=== PATIENT | male | born 1980 | race Caucasian/White ===

== ENCOUNTER 2019-03-02 05:12 | Emergency (ER) | payer BC, SELFPAY ==
[2019-03-02 05:16] VITALS: BP 176/114; PULSE 111; RESP 18; TEMP 37.2; O2SAT 96
--- NOTE | 2019-03-02 05:33 | W.ED.GENAD ---
Discharge Plan Disposition Patient Disposition: HOME Condition: Good Discharge Details Chief Complaint: Nausea/Vomit/Diar Clinical Impression: Nausea, vomiting and diarrhea, Generalized abdominal pain, Elevated lipase Primary Care Provider: Juli Sethi ED Provider: Ellis Chavez Meds and New Rx's Prescriptions: New promethazine 25 mg tablet 25 mg PO Q6H PRN (Reason: nausea and vomiting) Qty: 10 RF: 0 Continued ibuprofen 600 MG tablet 600 mg PO Q6H PRN (Reason: Pain) Qty: 20 RF: 0 Discharge Instructions Instructions: Acute Nausea and Vomiting (ED), Abdominal Pain (ED) Additional Instructions: Laboratory studies are unremarkable other than slight elevated lipase. CT scan shows the pancreas to be normal. Tip of the appendix a little swollen but otherwise no evidence of appendicitis. Should return to ED for fever, persistent vomiting, localizing right lower quadrant pain. Otherwise, rest and fluids today. [place] diet if tolerated. Follow-up with primary care in the next 1 to 2 days if not doing better. Stand Alone Forms: Work Release Referrals: Juli Sethi [Primary Care Provider] - Medical Decision Making Patient presenting with chief complaint of vomiting and diarrhea. Some nasal congestion and cough but that started after been vomiting all morning and may be related more to that than true respiratory illness. Suspect this is all GI illness. Abdomen is benign. Will place IV and give fluids, Zofran, Toradol. Basic labs sent. Will reevaluate. 06:45 -labs are unremarkable other than an elevated lipase to 477. Patient has decreased pain but still has significant nausea despite Zofran. Will dose with Phenergan and obtain CT of the abdomen/pelvis. 07:45 -CT scan shows fatty liver but normal pancreas. Tip of the appendix a little on the borderline size. However, patient does not have localizing right lower quadrant pain or fever or white count. He is feeling better after the Phenergan and tolerating spenser wendi and crackers. Will attempt discharge home with prescription for Phenergan. [place] diet and fluids only today. Return to ED for localizing right lower quadrant pain, fever, persistent vomiting. Follow-up with primary care in the next couple of days if not feeling better. Lab Data Lab results reviewed: Yes I reviewed the patient's lab results. HPI General Mode of arrival: ambulatory. Date/Time Provider Initiated Documentation: 03/02/19 05:22. Limitations to Documentation: no limitations. Information obtained by: patient and RN notes reviewed. HPI Narrative: Patient presents to ED with nausea, vomiting and abdominal cramps with associated diarrhea. Patient reports waking up two days ago and being ill with same complaints all day. Yesterday he was feeling better and was actually tolerating fluids and rice. Went to bed feeling okay but woke up again this morning with recurrent nausea/vomiting/diarrhea. He has had hot flashes and chills but no documented fever. Abdominal pain is not localizing and seems diffuse and he thinks related to vomiting. He is developed a little bit of congestion and slight cough this morning. He has no chest pain or shortness of breath. There is been no recent travel outside of [place], use of antibiotics, sick contacts. Related Data Home Medications Medication Instructions Recorded Confirmed ibuprofen 600 mg PO Q6H PRN #20 tablet 10/15/16 03/02/19 promethazine 25 mg PO Q6H PRN #10 tab 03/02/19 Previous Rx's Medication Instructions Recorded ibuprofen 600 mg PO Q6H PRN #20 tablet 10/15/16 promethazine 25 mg PO Q6H PRN #10 tab 03/02/19 Allergies Allergy/AdvReac Type Severity Reaction Status Date / Time No Known Allergies Allergy Unverified 03/02/19 05:20 General Stated Complaint: Nausea/Vomit/Diar THALIA: 3 Review of Systems Narrative: As documented in HPI otherwise negative as below. Const: no fever, weakness Resp: no cough, SOB, pleuritic pain CV: no CP, diaphoresis, edema, syncope GI: abdominal pain, nausea, vomiting, diarrhea Neuro: mild headache; no numbness, focal weakness, confusion [facility] Medical History No active medical problems (Acute) Surgical History No significant past surgical history (Acute) Social History Smoking/Tobacco Use Status: Never Alcohol Intake: current Alcohol Intake frequency: a few times a month Drug use: Never Do you feel safe at home: Yes Do you feel safe in your relationship?: Yes Exam Narrative Exam Narrative: Vitals: Afebrile. Elevated heart rate and blood pressure. Normal room air pulse oximetry. Const: WDWN male in NAD. HEENT: NC/AT. Normal facial exam. Eyes: Normal conjunctiva and sclera. Neck: Supple. Trachea midline. Lungs: Normal respiratory effort. Lungs are clear. Cor: RRR without murmur/gallop. Good radial pulses. GI: Soft. NT/ND. No guarding or rebound. Neuro: A+O x 3. CN grossly in tact. Good strength and no focal deficit. Ext: No C/C/E. Skin: Warm and dry without rash. Course Vital Signs Vital signs: Vital Signs Temperature 99.0 F 03/02/19 05:16 Pulse 111 H 03/02/19 05:16 Respiratory Rate 18 03/02/19 05:16 Blood Pressure 176/114 H 03/02/19 05:16 Pulse Oximetry 96 03/02/19 05:16 Temperature 99.0 F 03/02/19 05:16 Temperature Source Skin 03/02/19 05:16 Pulse 111 H 03/02/19 05:16 Respiratory Rate 18 03/02/19 05:16 Respiratory Effort Non-Labored 03/02/19 05:18 Blood Pressure 176/114 H 03/02/19 05:16 Blood Pressure Position Sitting 03/02/19 05:16 Pulse Oximetry 96 03/02/19 05:16 Oxygen Delivery Method Room Air 03/02/19 05:16 Oxygen Flow Rate 0 03/02/19 05:16 Comment 03/02/19 05:16 Lab/Test Results Lab/Test Results: 03/02/19 05:26 Nasopharynx Influenza Types A,B Antigen - Pending
[2019-03-02] MEDS: Ondansetron 4 MG/2 ML VIAL IVP (05:37)
[2019-03-02] MEDS: Ketorolac 15 MG/ML VIAL IVP (05:37)
[2019-03-02] MEDS: Lactated Ringers 1,000 ML 1000 ML IV (05:38)
[2019-03-02] MEDS: Normal Saline Flush 10 ML SYR IVP (05:38)
[2019-03-02 05:48] LABS: Abs Immature Grans 0.01 k/cumm (0.0-0.09); Absolute Eosinophil Count 0.02 k/cumm (0.0-0.7); Absolute Lymphocyte Count 0.45 k/cumm (1.2-3.4); Absolute Monocyte Count 0.54 k/cumm (0.11-0.7); Absolute Neutrophil Count 3.91 k/cumm (1.2-6.7); Eosinophils % 0.4; HCT 45.7 % (40.0-50.0); HGB 15.6 g/dL (13.5-17.5); Immature Grans % 0.2 %; Lymphocytes % 9.1; Mean Corp. HGB Concentration 34.1 g/dL (32.0-36.0); Mean Corpuscular Hemoglobin 30.2 pg (27.0-33.0); Mean Corpuscular Volume 88.4 fL (80-95); Mean Platelet Volume 9.6 fL (8.0-11.0); Neutrophils % 79.3; Platelet Count 158 x1000/uL (130-400); RBC 5.17 m/cumm (4.50-6.00); RBC Distribution Width 13.3 % (11.8-14.1); White Blood Cell Count 4.93 k/cumm (4.4-10.8)
[2019-03-02 06:04] LABS: ALT 27 U/L (16-63); AST 21 U/L (15-37); Albumin 3.7 g/dL (3.4-5.0); Alkaline Phosphatase 86 U/L (46-116); Anion Gap 13.4 mmol/L (3-11); BUN 15 mg/dL (7-18); Bilirubin, Total 0.6 mg/dL (0.2-1.0); CO2 24.6 mmol/L (21.0-32.0); CREATININE 1.17 mg/dL (0.70-1.30); Calcium 8.6 mg/dL (8.5-10.1); Chloride 101 mmol/L (98-107); Glucose 162 mg/dL (74-106); Lipase 477 U/L (73-393); Potassium 3.5 mmol/L (3.5-5.1); Sodium 139 mmol/L (136-145); Total Protein 7.6 g/dL (6.4-8.2)
[2019-03-02 06:30] VITALS: BP 136/79; PULSE 92; TEMP 36.9; O2SAT 97
[2019-03-02] MEDS: Omnipaque 350 MG/ML 100 ML BTL IJ (06:44)
--- NOTE | 2019-03-02 06:47 | DI.CT_ITS ---
EXAM: CT ABDOMEN PELVIS W CLINICAL HISTORY: vomiting/abd. pain/elevated lipase, NAUSEA,DIARRHEA TECHNIQUE: Imaging Protocol: Axial computed tomography images with coronal and sagittal reformatted images were created and reviewed CONTRAST MATERIAL: Intravenous: Omnipaque 350 Contrast volume:100 mL Oral: No COMPARISON: No exams were available for comparison FINDINGS: ABDOMEN: Lung Bases: Normal where visualized. Liver: Normal density. No measurable mass. Gallbladder and biliary tract: No radiodense calculus or dilation. Pancreas: Normal density, no abnormal calcifications or inflammatory process. Spleen: Normal. Kidneys: Normal size, contour and axis. No radiodense stones or obstructive uropathy. No masses seen. Adrenal glands: No masses seen. Abdominal Aorta: Abdominal portion non-dilated. Incidental note is made of a retroaortic left renal v ein. This is a normal variant. PELVIS: Bladder: Bladder is incompletely distended. Thickening of the bladder wall may be due to this incomp lete distension. No inflammatory changes are seen in the surrounding soft tissues. Bowel: No obstruction or bowel wall thickening. The tip of the appendix measures 8 millimeters in phil meter. The remainder of the appendix is of normal caliber. No periappendiceal inflammatory changes are seen. Peritoneal cavity: No ascites, collection or mesenteric inflammatory response. There is a small fat c ontaining umbilical hernia. Bones: Within normal limits. Reproductive organs: Within normal limits. Lymph nodes: Mildly enlarged lymph nodes are seen in the mesentery. Impression: 1. Mild prominence of the tip of the appendix measuring up to 8 millimeters. This may represent base line slightly prominent appendix in this patient. An early tip appendicitis cannot be excluded. Ple ase correlate clinically. 2. Mildly enlarged lymph nodes in the mesentery. Mesenteric adenitis cannot be excluded. 3. Equivocal urinary bladder wall thickening. This may be due to underdistention. Cystitis should b e considered. DATA REPOSITORY: All CT scans at this facility are submitted to the National Radiology Data Registry (NRDR) Dose Index Registry (DIR) with the [employer] (ACR). RADIATION OPTIMIZATION: All CT scans at this facility use at least one of these dose optimization te chniques: automated exposure control; mA and/or kV adjustment per patient size (includes targeted exa ms where dose is matched to clinical indication); or iterative reconstruction.
[2019-03-02] MEDS: Lactated Ringers 1,000 ML 125 ML IV (06:55)
[2019-03-02 06:56] VITALS: BP 131/87; PULSE 91; RESP 15; TEMP 36.6; O2SAT 98
--- NOTE | 2019-03-02 07:17 | DI.VRAD_ITS ---
Addendum created by Chris Sue MD on 03/02/2019 7:20:36 AM EST THIS REPORT CONTAINS FINDINGS THAT MAY BE CRITICAL TO PATIENT CARE. The findings were verbally communicated via telephone conference with JOHN SANTOYO at 7:20 AM EST on 03/02/2019. The findings were acknowledged and understood. Initial report created on 03/02/2019 7:16:48 AM EST PROCEDURE INFORMATION: Exam: CT Abdomen And Pelvis With Contrast Exam date and time: 03/02/2019 6:44 AM Age: 38 years old Clinical indication: Abdominal pain; Generalized; Patient HX: Nausea, vomiting, diarrhea for 3 days with abdomen TECHNIQUE: Imaging protocol: Computed tomography of the abdomen and pelvis with intravenous contrast. Radiation optimization: All CT scans at this facility use at least one of these dose optimization techniques: automated exposure control; mA and/or kV adjustment per patient size (includes targeted exams where dose is matched to clinical indication); or iterative reconstruction. Contrast material: OMNIPAQUE 350; Contrast volume: 100 ml; Contrast route: IV RAC; COMPARISON: No relevant prior studies available. FINDINGS: Liver: Hepatic steatosis is present. Gallbladder and bile ducts: Normal. No calcified stones. No ductal dilation. Pancreas: Normal. No ductal dilation. Spleen: Normal. No splenomegaly. Adrenals: Normal. No mass. Kidneys and ureters: Normal. No hydronephrosis. Stomach and bowel: Unremarkable. No obstruction. No mucosal thickening. Appendix: The base of the appendix is normal in caliber. The tip of the appendix is dilated to 7-8 mm. Findings may reflect baseline slightly prominent appendix. An early tip appendicitis is not excluded in the correct clinical setting. Intraperitoneal space: Unremarkable. No free air. No significant fluid collection. Vasculature: Unremarkable. No abdominal aortic aneurysm. Lymph nodes: Nonspecific small mesenteric lymph nodes are noted. Bladder: The urinary bladder is questionably thickwalled. This may reflect incomplete distention. However correlation with UA is recommended to exclude cystitis. Reproductive: Unremarkable as visualized. Bones/joints: Unremarkable. No acute fracture. Soft tissues: Fat containing umbilical hernia is noted. IMPRESSION: 1. The base of the appendix is normal in caliber. The tip of the appendix is dilated to 7-8 mm. Findings may reflect baseline slightly prominent appendix. An early tip appendicitis is not excluded in the correct clinical setting. 2. Equivocal cystitis. Dictated and Authenticated by: Chris Sue MD. Ordering:AUDIE Corral MD
[2019-03-02 08:00] VITALS: BP 126/72; PULSE 85; RESP 15; TEMP 36.5; O2SAT 98
[2019-03-02 08:05] VITALS: BP 126/72; PULSE 85; RESP 15; TEMP 36.5; O2SAT 98
== END 2019-03-02 08:07 | disposition home or self-care (01) ==
PROVIDERS: Emergency Provider Emergency Medicine; PCP Nurse Practitioner
DX: R11.2 Nausea with vomiting, unspecified (principal); R19.7 Diarrhea, unspecified; R05 Cough; R10.84 Generalized abdominal pain; R74.8 Abnormal levels of other serum enzymes
CPT/HCPCS: 36415; 80053; 83690; 87449; 96361; 96374; 96375; 99285; 74177; 85025; 99284; J1885; J2405; J3490

== ENCOUNTER 2019-12-02 09:59 | Outpatient (CLI) | payer BC, SELFPAY ==
--- NOTE | 2019-12-02 14:48 | DI.RAD_ITS ---
EXAM: XR HAND RT COMPLETE CLINICAL HISTORY: RT HAND PAIN, M79.641,PAIN OVER RT2ND MP JOINT. TECHNIQUE: 2D digital imaging was performed. COMPARISON: No exams were available for comparison FINDINGS: BONES: No acute fracture is present. No bony destructive lesion is seen. JOINTS: No dislocation present. Joint spaces are well maintained. SOFT TISSUE: Soft tissue swelling of the right index finger. IMPRESSION: Soft tissue swelling of the right index finger. DATA REPOSITORY: RADIATION DOSE DELIVERED:
== END 2019-12-02 10:19 ==
PROVIDERS: PCP Nurse Practitioner; Visit Provider Nurse Practitioner Family
DX: M79.641 Pain in right hand (principal); M79.89 Other specified soft tissue disorders
CPT/HCPCS: 73130

== ENCOUNTER 2019-12-02 13:50 | Outpatient (REF) | payer BC, SELFPAY ==
[2019-12-02 21:48] LABS: Uric Acid 8.8 mg/dL (3.5-7.2)
== END 2019-12-02 14:10 ==
LOC: NCHCN 13:50
PROVIDERS: PCP Nurse Practitioner; Visit Provider Nurse Practitioner Family
DX: M79.641 Pain in right hand (principal)
CPT/HCPCS: 84550

== ENCOUNTER 2020-01-10 09:13 | Outpatient (REF) | payer BC, SELFPAY ==
[2020-01-10 22:47] LABS: Anion Gap 7.1 mmol/L (3-11); BUN 14 mg/dL (7-18); CO2 26.9 mmol/L (21.0-32.0); CREATININE 1.24 mg/dL (0.70-1.30); Chloride 104 mmol/L (98-107); Glucose 124 mg/dL (74-106); Potassium 3.7 mmol/L (3.5-5.1); Sodium 138 mmol/L (136-145); Uric Acid 5.8 mg/dL (3.5-7.2)
== END 2020-01-10 09:33 ==
LOC: NCHCN 09:13
PROVIDERS: PCP Nurse Practitioner; Visit Provider Internal Medicine
DX: I10 Essential (primary) hypertension (principal); M10.9 Gout, unspecified; G47.9 Sleep disorder, unspecified
CPT/HCPCS: 80048; 84550

== ENCOUNTER 2020-07-09 05:25 | Emergency (ER) | payer BC, SELFPAY ==
[2020-07-09] VITALS (10 sets, daily range): BP systolic 133–154; BP diastolic 88–101; PULSE 80–90; RESP 14–18; TEMP 36.3; O2SAT 97–99
--- NOTE | 2020-07-09 05:15 | RT.EKG_ITS ---
APPROVED REPORT Exam: Resting ECG Reason for Exam: chest pain Patient Location: E HR:86 bpm ECG Measurements Heart Rate 86 AXIS WA 172 P 42 QRSd 96 QRS 53 QT 354 T 2 QTc 423 Conclusion Sinus rhythm...normal P axis, V-rate 60- 99
--- NOTE | 2020-07-09 05:30 | DI.RAD_ITS ---
Exam(s) XR CHEST 2V PA LATERAL EXAM: XR CHEST 2V PA LATERAL CLINICAL HISTORY: left upper chest pain. TECHNIQUE: 2D digital imaging was performed. COMPARISON: No exams were available for comparison FINDINGS: Heart size is normal. The mediastinum is not widened. Lungs are clear. No infiltrates nor pleural effusions. Chest leads in place. IMPRESSION: No acute pulmonary findings. DATA REPOSITORY: RADIATION DOSE DELIVERED:
[2020-07-09 05:55] LABS: Abs Immature Grans 0.01 10^3/uL (0.0-0.06); Absolute Basophil Count 0.02 10^3/uL (0.0-0.2); Absolute Lymphocyte Count 1.15 10^3/uL (1.2-3.4); Absolute Monocyte Count 0.42 10^3/uL (0.1-0.8); Absolute Neutrophil Count 2.59 10^3/uL (1.2-6.7); Basophils % 0.5; Eosinophils % 4.6; HCT 42.3 % (40.0-50.0); HGB 14.4 g/dL (13.5-17.5); Immature Grans % 0.2; Lymphocytes % 26.2; MCH 30.4 pg (27.0-33.0); MCV 89.4 fL (80-95); MPV 9.8 fL (8.0-11.0); Monocytes % 9.6; Neutrophils % 58.9; Nucleated RBC 0 %; Platelet Count 149 10^3/uL (130-400); RBC 4.73 10^6/uL (4.36-5.78); RDW 11.9 % (11.8-14.1); RDW-SD 38.8 fL; WBC 4.39 10^3/uL (4.4-10.8)
--- NOTE | 2020-07-09 06:06 | ED.GENADUL_ITS ---
Discharge Plan Disposition Patient Disposition: HOME Condition: Good Discharge Details Clinical Impression: Chest pain Primary Care Provider: Jorge Velazquez ED Provider: Marlon Lama Home Meds and New Rx's Prescriptions: Continued ibuprofen 600 MG tablet 600 mg PO Q6H PRN (Reason: Pain) Qty: 20 RF: 0 amlodipine 5 mg tablet 5 mg PO DAILY RF: 0 losartan 100 mg tablet 5 mg PO DAILY RF: 0 hydrochlorothiazide 12.5 mg tablet 12.5 mg PO DAILY RF: 0 Discharge Instructions Instructions: Chest Pain (ED) Additional Instructions: At this time your work-up shows no signs of heart attack, pneumonia, mass in the chest, blood clots, or Popped lung. I suspect your symptoms as we discussed are likely secondary to a spasm muscle irritation from the lung lining. Please take Tylenol or Motrin as needed. Avoid any vigorous activity for the next 2 days. If you notice any worsening of your symptoms, or any new symptoms such as vomiting, diarrhea, fever, chills, shortness of breath, chest pain, numbness, weakness, or fainting , please return immediately to the emergency department for reevaluation. Please follow up with your primary care provider as soon as possible for reassessment and reevaluation. As always, it was a pleasure participating in your medical care today. Referrals: Jorge Velazquez MD [Primary Care Provider] - Medical Decision Making This is a 39-year-old male with a past medical history of hypertension who presents today for evaluation of chest pain. Patient states he woke up this morning and had mild pain in his left upper chest. He describes it as a mild tightness. It was worse when he laid back, slightly improved when he sat upright. He does admit to a slight pleuritic discomfort as well. He did drink some beers last night, and was working outside today before, but otherwise denies any trauma or significant new activity. Patient has no history of cardiac disease but his father did have cardiac disease in his 60s. Denies PE risk factors such as recent long car rides, immobilization, recent surgery, prior history of DVT or PE, family history of PE or DVT, morbid obesity, exogenous estrogen and smoking, hemoptysis, history of cancer. On the patient strives to the emergency department he stated that the pain nearly completely resolved. Patient denies any other factors of exertional chest pain, worse pain with movement, or reproducibility of pain at this point. No other complaints at this time. No other modifying factors. Additionally the patient denies any cocaine use, or tobacco use in the past. Exam is notably unremarkable, no reproducible chest pain, no bruits, no pulse asymmetry. Patient is slightly hypertensive, but otherwise vital signs are stable. Patient is low risk for PERC and Wells score. We will do a D-dimer secondary to the mild pleuritic component though. EKG is relatively unremarkable, sinus rhythm, no evidence of STEMI. We will give Toradol, monitor closely and reassess. Of note bedside ultrasound shows no significant abnormality cardiac exam, no large pericardial effusion or signs of tamponade. Differential at this time is highest for pericarditis, intercostal muscle spasm. Symptoms at this time are clinically inconsistent with dissection. 6:43 AM EKG unremarkable, no evidence of STEMI. D-dimer negative. Troponin negative, chest x-ray negative per virtual radiology. No electrolyte abnormality to speak of, proBNP negative suggesting no heart strain. Lipase normal. Signs and symptoms at this time are inconsistent with ACS, PE, dissection, pneumonia, or STEMI. Suspect musculoskeletal irritation or precordial catch syndrome. Differential includes mild pericarditis but I feel this is less likely. Discussed option of repeat troponin and further observation with the patient and his significant other at bedside. Through shared decision-making process they feel comfortable with the current work-up and the patient would like to go home. We discussed the risks and benefits of this and the patient understands. Patient is notably low risk for any cardiac abnormality/ischemia, heart score low. Patient stable and appropriate for discharge clinically at this time. I have extensively reviewed the treatment plan and discharge instructions with the patient. I have addressed all patient concerns at this time. The patient was made aware of what symptoms to monitor for that would warrant a return to the emergency department. Discussed the plan with the patient, they demonstrate verbal understanding and agreement with our assessment and plan at this time. The documentation in this chart was dictated using [employer] dictation software. Please excuse any dictation errors. EKG 5: 30 Rate 86, sinus rhythm, no significant ST elevation or depression. Patient does have an inverted T wave in lead III, small Q-wave in lead III. No other significant abnormalities. (Of note infinite is currently down and we are not able to upload the EKG interpretation to the system.) FINDINGS: Lungs: Unremarkable. No consolidation. Pleural spaces: Unremarkable. No pleural effusion. No pneumothorax. Heart/Mediastinum: Unremarkable. No cardiomegaly. Bones/joints: Unremarkable. IMPRESSION: No acute findings. Thank you for allowing us to participate in the care of your patient. Dictated and Authenticated by: Chris Sue MD 07/09/2020 6:13 AM Eastern Time ([place] & [place]) HPI General Date/Time Provider Initiated Documentation: 07/09/20 05:29 . HPI Narrative: This is a 39-year-old male with a past medical history of hypertension who presents today for evaluation of chest pain. Patient states he woke up this morning and had mild pain in his left upper chest. He describes it as a mild tightness. It was worse when he laid back, slightly improved when he sat upright. He does admit to a slight pleuritic discomfort as well. He did drink some beers last night, and was working outside today before, but otherwise denies any trauma or significant new activity. Patient has no history of cardiac disease but his father did have cardiac disease in his 60s. Denies PE risk factors such as recent long car rides, immobilization, recent surgery, prior history of DVT or PE, family history of PE or DVT, morbid obesity, exo genous estrogen and smoking, hemoptysis, history of cancer. On the patient strives to the emergency department he stated that the pain nearly completely resolved. Patient denies any other factors of exertional chest pain, worse pain with movement, or reproducibility of pain at this point. No other complaints at this time. No other modifying factors. Additionally the patient denies any cocaine use, or tobacco use in the past. Related Data Home Medications Medication Instructions Recorded Confirmed ibuprofen 600 mg PO Q6H PRN #20 tablet 10/15/16 03/02/19 amlodipine 5 mg PO DAILY 07/09/20 07/09/20 hydrochlorothiazide 12.5 mg PO DAILY 07/09/20 07/09/20 losartan 5 mg PO DAILY 07/09/20 07/09/20 Previous Rx's Medication Instructions Recorded ibuprofen 600 mg PO Q6H PRN #20 tablet 10/15/16 Allergies Allergy/AdvReac Type Severity Reaction Status Date / Time No Known Allergies Allergy Unverified 07/09/20 05:38 General Stated Complaint: Chest Pain THALIA: 3 Review of Systems All systems reviewed & are unremarkable except as noted in HPI and below PFSH Medical History Hypertension No active medical problems Surgical History No significant past surgical history Social History Smoking/Tobacco Use Status: Never Smoking risk assessment performed?: Yes Alcohol Intake: current Alcohol Intake frequency: a few times a month Drug use: Never Do you feel safe at home: Yes Do you feel safe in your relationship?: Yes Exam Narrative Exam Narrative: 1.Const: Well-nourished, Well-developed, appearing stated age 2.Eyes: PERRL, no conjunctival injection, and symmetrical lids. 3.ENT: Atraumatic external nose and ears. Moist MM. Neck: Symmetric, trachea midline, No thyromegaly. 4.CVS: +S1/S2, No murmurs or gallops. Peripheral pulses 2+ and equal in all extremities. Brisk capillary refill in all extremities. No reproducibility of pain with chest wall palpation. Radial pulses +2 bilaterally. 5.RESP: Unlabored respiratory effort. Clear to auscultation bilaterally. No wheezes rales or rhonchi 6.GI: Soft, Nontender/Nondistended, No hepatosplenomegaly. No guarding or rebound. 7.MSK: Normocephalic/Atraumatic, Extremities w/o deformity or ttp No cyanosis or clubbing, Normal movement of all extremities 8.Skin: Warm, Dry. No rashes or lesions. 9.Neuro: attraction worker II-XII grossly intact. Sensation grossly intact, no focal neurologic deficits. 10.Psych: (AAO) x3. Appropriate mood and affect Course Vital Signs Vital signs: Vital Signs Temperature 36.3 C L 07/09/20 05:34 Pulse 88 07/09/20 05:34 Respiratory Rate 17 07/09/20 05:34 Blood Pressure 154/101 H 07/09/20 05:34 Pulse Oximetry 98 07/09/20 05:34 Temperature 36.3 C L 07/09/20 05:34 Temperature Source Skin 07/09/20 05:34 Pulse 87 07/09/20 05:46 Pulse 87 07/09/20 05:46 Respiratory Rate 18 07/09/20 05:46 Respiratory Effort Non-Labored 07/09/20 05:43 Respiratory Depth Normal 07/09/20 05:43 Respiratory Pattern Normal 07/09/20 05:43 Blood Pressure 143/96 H 07/09/20 05:46 Blood Pressure Mean 105 07/09/20 05:46 Pulse Oximetry 97 07/09/20 05:46 Oxygen Delivery Method Room Air 07/09/20 05:34 Oxygen Flow Rate 0 07/09/20 05:34
[2020-07-09] MEDS: Normal Saline 500 ML IV (06:11)
[2020-07-09] MEDS: Ketorolac 30 MG/ML VIAL IVP (06:11)
--- NOTE | 2020-07-09 06:14 | DI.VRAD_ITS ---
PROCEDURE INFORMATION: Exam: XR Chest Exam date and time: 07/09/2020 5:43 AM Age: 39 years old Clinical indication: Other: Left upper chest pain TECHNIQUE: Imaging protocol: XR of the chest. Views: 2 views. COMPARISON: No relevant prior studies available. FINDINGS: Lungs: Unremarkable. No consolidation. Pleural spaces: Unremarkable. No pleural effusion. No pneumothorax. Heart/Mediastinum: Unremarkable. No cardiomegaly. Bones/joints: Unremarkable. IMPRESSION: No acute findings. Dictated and Authenticated by: Chris Sue MD. Ordering:EMILIANA Mason MD
[2020-07-09 06:15] LABS: ALT 28 U/L (16-63); AST 16 U/L (15-37); Albumin 3.8 g/dL (3.4-5.0); Alkaline Phosphatase 99 U/L (46-116); Anion Gap 8.4 mmol/L (3-11); BUN 16 mg/dL (7-18); Bilirubin, Total 0.3 mg/dL (0.2-1.0); CO2 29.6 mmol/L (21.0-32.0); CREATININE 1.3 mg/dL (0.70-1.30); Calcium 8.8 mg/dL (8.5-10.1); Chloride 106 mmol/L (98-107); Glucose 149 mg/dL (74-106); Lipase 119 U/L (73-393); NT-proBNP 11 pg/mL (<300); Potassium 3.6 mmol/L (3.5-5.1); Sodium 144 mmol/L (136-145); Total Protein 7.6 g/dL (6.4-8.2)
[2020-07-09 06:18] LABS: Troponin I < 0.05 ng/mL (<0.06)
[2020-07-09 06:32] LABS: D-Dimer 149 ng/mlFEU (<500)
== END 2020-07-09 07:00 | disposition home or self-care (01) ==
PROVIDERS: Emergency Provider Student in an Organized Health Care Education/Training Program; PCP Internal Medicine
DX: R07.9 Chest pain, unspecified (principal)
CPT/HCPCS: 80053; 83690; 93005; 96361; 96374; 99284; 71046; 83880; 84484; 85025; 85379; 93010; 99283; J1885

== ENCOUNTER 2021-02-18 15:34 | Emergency (ER) | payer BC, SELFPAY ==
[2021-02-18 15:40] VITALS: BP 124/75; PULSE 114; RESP 18; TEMP 37.8; O2SAT 99
[2021-02-18 15:46] VITALS: RESP 20
--- NOTE | 2021-02-18 15:46 | ED.GENADUL_ITS ---
Discharge Plan Disposition Patient Disposition: HOME Condition: Stable Discharge Details Clinical Impression: Cellulitis of left elbow, Cough, Fever Primary Care Provider: Jorge Velazquez ED Provider: Katelin Colón Home Meds and New Rx's Prescriptions: New clindamycin HCl 150 mg capsule 450 mg PO TID 10 Days Qty: 90 RF: 0 Continued ibuprofen 600 MG tablet 600 mg PO Q6H PRN (Reason: Pain) Qty: 20 RF: 0 acetaminophen 500 mg Tablet 1,000 mg PO PRN PRNRF: 0 Discharge Instructions Instructions: Cellulitis (ED), Elbow Bursitis (ED), Fever in Adults (ED), Acute Cough (ED) Additional Instructions: Drink plenty of fluids and get plenty of rest. Alternate tylenol and motrin as needed and directed for pain or fever. Prescriptions for antibiotics has been sent electronically to your pharmacy. Take these as directed until finished. You have been placed on orthopedic follow-up list for reevaluation this week. Call the orthopedist office tomorrow to confirm your follow-up appointment. Return immediately to the emergency department if you develop any worsening or new concerning symptoms such as persistent fevers, worsening pain, redness, swelling or any other concerns. Please quarantine until you are notified your Covid test is negative. If your Covid test is positive, please follow up with your primary care doctor regarding when to return to normal activity. Stand Alone Forms: Work Release Referrals: Walt Ny MD [ [facility] STAFF PHYSICIAN] - Discharge Data Discharge Physician: Katelin Colón Medical Decision Making 40-year-old male presents with left elbow edema, erythema and pain for the past 2 days, now worse with left forearm swelling today. Also admits to fever 101.4 last night, body aches, chills, lower backache, decreased appetite and dry cough for 2 days. Temporal temperature 100. Heart rate 114. Patient appears somewhat loggy but otherwise in no acute distress. Normal ENT exam. Lungs clear. His left elbow is hot to the touch with erythema, edema and fluctuance overlying olecranon. There is left forearm edema. He has tenderness to palpation overlying the olecranon with reproducible pain with extension and pronation. There is no obvious crepitus and he is otherwise neurovascularly intact. Consider septic bursitis versus cellulitis. Also consider septic arthritis but he has fairly good range of motion other than pain with full extension. Also consider Covid with his flulike symptoms and dry cough. Will place an IV, bolus IV fluids, IV Tylenol, IV clindamycin, screening labs including CRP and ESR and left elbow x-ray. Covid swab obtained. Will discuss with orthopedics whether recommends to obtain fluid culture from joint. Discussed with orthopedics and no recommendations for joint aspiration. Recommend antibiotics and Aldair wrap extending above elbow joint - will follow up with patient in the office in a couple days. Labs and imaging reviewed. White blood cell count 8. ESR 16. CRP 17.51. X- ray notes soft tissue swelling but no evidence of osteomyelitis. Patient felt that his redness and swelling was slightly worse after IV antibiotics. The edges of the erythema appear more circumscribed rather than faint but there does not appear to be any significant increase in swelling. Skin markings placed around edge of erythema. Aldair wrap placed around the edges of erythema on left upper extremity. Patient states he would prefer to go home. Disposition decision made weighing the risks and benefits of hospitalization versus outpatient treatment, the risk for further decompensation, and the patient's wishes. Prescriptions for antibiotics sent electronically to his pharmacy. Advised on the importance of rest and elevation. Patient placed on orthopedic follow-up list. Usual and customary return precautions given prior to discharge. Medical Records Medical records reviewed: Yes I reviewed the patient's medical records. Imaging Data Radiologic Study: Radiologist's impression: XR Left Elbow Exam date and time: 02/18/2021 4:08 PM Age: 40 years old Clinical indication: Other: L elbow erythema/edema, R/O osteo TECHNIQUE: Imaging protocol: XR Left elbow. Views: 3 or more views. COMPARISON: No relevant prior studies available. FINDINGS: Bones/joints: No evidence of osteomyelitis as imaged. There is no evidence of acute fracture. There is no evidence of joint malalignment or dislocation. Soft tissues: Moderate posterior soft tissue swelling. IMPRESSION: 1. Moderate posterior soft tissue swelling. 2. No evidence of osteomyelitis as imaged. Further evaluation is recommended if symptoms persist. 3. No evidence of acute fracture. 4. No evidence of acute dislocation. Lab Data Lab results reviewed: Yes I reviewed the patient's lab results. Labs: Laboratory Tests Range/Units 02/18/21 02/18/21 02/18/21 15:17 15:17 15:17 WBC (4.4-10.8) 10^3/uL 8.67 RBC (4.36-5.78) 10^6/uL 4.97 Hgb (13.5-17.5) g/dL 15.1 Hct (40.0-50.0) % 45.5 MCV (80-95) fL 91.5 MCH (27.0-33.0) pg 30.4 MCHC (32.0-36.0) % 33.2 RDW (11.8-14.1) % 12.6 Plt Count (130-400) 10^3/uL 162 MPV (8.0-11.0) fL 10.0 Immature Gran % 0.3 Neutrophils % 79.2 Lymphocytes % 11.1 Monocytes % 8.9 Eosinophils % 0.3 Basophils % 0.2 Nucleated RBC % % 0 Absolute Neutrophils (1.2-6.7) 10^3/uL 6.86 H Absolute Lymphocytes (1.2-3.4) 10^3/uL 0.96 L Absolute Monocytes (0.1-0.8) 10^3/uL 0.77 Absolute Eosinophils (0.0-0.7) 10^3/uL 0.03 Absolute Basophils (0.0-0.2) 10^3/uL 0.02 ESR (0-15) mm/hr 16 H Sodium (136-145) mmol/L 140 Potassium (3.5-5.1) mmol/L 3.7 Chloride (98-107) mmol/L 101 Carbon Dioxide (21.0-32.0) mmol/L 28.0 Anion Gap (3-11) mmol/L 11.0 BUN (7-18) mg/dL 13 Creatinine (0.70-1.30) mg/dL 1.3 Estimated GFR/1.73 m2 (mL/min/1.73m2) >= 60.00 Glucose (74-106) mg/dL 135 H Calcium (8.5-10.1) mg/dL 9.0 Total Bilirubin (0.2-1.0) mg/dL 0.8 AST (15-37) U/L 18 ALT (16-63) U/L 32 Alkaline Phosphatase (46-116) U/L 99 C-Reactive Protein (0.0-0.3) mg/dL 17.51 H Total Protein (6.4-8.2) g/dL 8.4 H Albumin (3.4-5.0) g/dL 4.1 HPI General Mode of arrival: ambulatory . Date/Time Provider Initiated Documentation: 02/18/21 15:37 . Limitations to Documentation: no limitations . Information obtained by: patient . HPI Narrative: Patient is a 40-year-old male who presents with pain, redness and swelling of his left elbow now extending into his left forearm for the past 2 days. Patient states he had a fall getting out of his truck before [place] but states he does not recall falling on his elbow and denies any elbow pain at that time. He otherwise denies any known inj ury to his elbow. 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 Patient states he noted left elbow redness, pain and swelling 2 days ago which became worse last night and then noted swelling in his left forearm today. Patient has felt feverish and chills, decreased appetite, fatigue and backache for the past 2 days. Oral temperature last night 101.4. Last dose of Tylenol this morning. He does admit to a dry cough for the past 2 days. He denies any significant headache, ear pain, nasal congestion or discharge, sore throat, chest pain, shortness of breath, abdominal pain, vomiting, diarrhea, leg pain, weakness or numbness, or bowel or bladder incontinence. He states he is not vaccinated for Covid and denies any known exposure to coronavirus but states he was concerned for potential Covid. Related Data Home Medications Medication Instructions Recorded Confirmed ibuprofen 600 mg PO Q6H PRN #20 tablet 10/15/16 02/18/21 acetaminophen 1,000 mg PO PRN PRN 02/18/21 02/18/21 clindamycin HCl 450 mg PO TID 10 Days #90 cap 02/18/21 Previous Rx's Medication Instructions Recorded ibuprofen 600 mg PO Q6H PRN #20 tablet 10/15/16 clindamycin HCl 450 mg PO TID 10 Days #90 cap 02/18/21 Allergies Allergy/AdvReac Type Severity Reaction Status Date / Time No Known Allergies Allergy Unverified 02/18/21 15:45 General Stated Complaint: GenMedical THALIA: 3 Review of Systems All systems reviewed & are unremarkable except as noted in HPI and below Constitutional Constitutional: Reports as per HPI, Denies chills and Denies fever(s) Eyes Eyes: Denies blurry vision ENT Ears, Nose, Mouth, and Throat: Denies dizziness, Denies sore throat and Denies throat swelling Cardiovascular Cardiovascular: Denies chest pain and Denies dyspnea Respiratory Respiratory: Reports cough and Denies dyspnea Gastrointestinal Gastrointestinal: Denies abdominal pain, Denies diarrhea and Denies vomiting Genitourinary Genitourinary: Denies hematuria and Denies dysuria Musculoskeletal Musculoskeletal: Denies back pain, Denies numbness and Reports other (L elbow pain, redness, and swelling) Integumentary/Breasts Skin/Breast: Denies lesions and Denies rash Neurologic Neurologic: Denies dizziness, Denies localized weakness and Denies numbness Allergic/Immunologic Allergic/Immunologic: Denies throat swelling PFSH All Active Problems (Updated 02/18/21 @ 16:39 by Katelin Colón DO) Cellulitis of left elbow (Acute) Cough (Acute) Fever (Acute) Chest pain (Acute) Medical History (Updated 02/18/21 @ 16:39 by Katelin Colón DO) Hypertension Surgical History No significant past surgical history Social History Smoking/Tobacco Use Status: Never Smoking risk assessment performed?: Yes Alcohol Intake: current Alcohol Intake frequency: a few times a month Drug use: Never Do you feel safe at home: Yes Do you feel safe in your relationship?: Yes Exam Const General: cooperative and no acute distress Orientation: alert, awake and oriented x3 HENMT Head: normal to inspection Ears: hearing grossly normal bilaterally, external ears normal and TM's normal bilaterally General nose exam: external nose normal Face and sinus: normal facial exam Mouth: oral mucosae normal Throat: posterior oropharynx normal, uvula midline, no peritonsillar masses and normal posterior oropharynx Eyes General: appearance normal, both eyes and all related structures Pupils: PERRL EOM: EOM intact bilaterally Neck Neck: normal visual inspection and No submandibular swelling Lymphatic: no lymphadenopathy noted Chest Chest: normal inspection of the chest and no tenderness Resp Effort & Inspection: normal respiratory effort and able to speak in complete sentences Auscultation: clear to auscultation bilaterally Cardio Rate: regular rate Rhythm: regular rhythm GI Inspection: normal to inspection Palpation: soft, not firm, not rigid and nontender Auscultation: normal bowel sounds Back/Spine/Pelvis Thoracic/Lumbar Spine: thoracic and lumbar spine normal to inspection, No paraspinal tenderness and No thoracic spinal tenderness Pelvis: no pain with anterior-posterior compression Skin General skin exam: no rashes or lesions noted Neuro General: patient alert, patient awake and patient oriented x3 Cognition: normal cognition Speech: speech normal Motor: muscle tone normal throughout and strength 5/5 throughout Sensory Exam: no sensory deficits noted Extrem General: capillary refill normal, no calf tenderness bilaterally and no edema Elbow/forearm/wrist images: 1. Hot to touch, erythematous, edematous with fluctuance overlying olecranon. There is surrounding edema which extends superiorly above elbow and inferior down through distal forearm. There is no crepitus, rash or lesions. Other: There is no significant limitation of range of motion, just mostly pain with range of motion, most specifically extension of elbow and pronation. Left radial and ulnar pulses intact. Normal capillary refill. Psych Appearance: grossly normal Mental Status: mental status grossly normal Speech and Movement: speech and movement normal Affect: normal affect Course Vital Signs Vital signs: Vital Signs Temperature 100.0 F H 02/18/21 15:40 Pulse 114 H 02/18/21 15:40 Respiratory Rate 18 02/18/21 15:40 Blood Pressure 124/75 02/18/21 15:40 Pulse Oximetry 99 02/18/21 15:40 Temperature 100.0 F H 02/18/21 15:40 Temperature Source Temporal Artery Scan 02/18/21 15:40 Pulse 114 H 02/18/21 15:40 Respiratory Rate 18 02/18/21 15:40 Blood Pressure 124/75 02/18/21 15:40 Pulse Oximetry 99 02/18/21 15:40 Oxygen Delivery Method Room Air 02/18/21 15:40 Oxygen Flow Rate 0 02/18/21 15:40 Pain Level 5 02/18/21 15:40
--- NOTE | 2021-02-18 16:00 | DI.RAD_ITS ---
Exam(s) XR ELBOW LT COMPLETE EXAM: XR ELBOW LT COMPLETE CLINICAL HISTORY: L elbow erythema/edema, r/o osteo. TECHNIQUE: 2D digital imaging was performed of the left elbow. Three images were obtained. AP, lat eral and oblique views were obtained. COMPARISON: No exams were available for comparison FINDINGS: BONES: No acute fracture is present. No bony destructive lesion is seen. JOINTS: The elbow is normally aligned. No joint effusion is seen. SOFT TISSUE: There is soft tissue swelling about the elbow particularly posteriorly. IMPRESSION: 1. Soft tissue swelling around the elbow. 2. No radiographic evidence of osteomyelitis. DATA REPOSITORY: RADIATION DOSE DELIVERED:
[2021-02-18] MEDS: ACETAMINOPHEN 1,000 MG/100 ML BTL 400 MG IVPB (16:23)
[2021-02-18] MEDS: Normal Saline 1,000 ML 1000 ML IV (16:23)
[2021-02-18 16:36] LABS: Abs Immature Grans 0.03 10^3/uL (0.0-0.06); Absolute Basophil Count 0.02 10^3/uL (0.0-0.2); Absolute Eosinophil Count 0.03 10^3/uL (0.0-0.7); Absolute Lymphocyte Count 0.96 10^3/uL (1.2-3.4); Absolute Monocyte Count 0.77 10^3/uL (0.1-0.8); Absolute Neutrophil Count 6.86 10^3/uL (1.2-6.7); Basophils % 0.2; Eosinophils % 0.3; HCT 45.5 % (40.0-50.0); HGB 15.1 g/dL (13.5-17.5); Immature Grans % 0.3; Lymphocytes % 11.1; MCH 30.4 pg (27.0-33.0); MCHC 33.2 % (32.0-36.0); MCV 91.5 fL (80-95); Monocytes % 8.9; Neutrophils % 79.2; Nucleated RBC 0 %; Platelet Count 162 10^3/uL (130-400); RBC 4.97 10^6/uL (4.36-5.78); RDW 12.6 % (11.8-14.1); RDW-SD 42.2 fL; WBC 8.67 10^3/uL (4.4-10.8)
[2021-02-18 16:37] LABS: ESR 16 mm/hr (0-15)
[2021-02-18] MEDS: CLINDAMYCIN 600 MG/50 ML BAG 100 MG IVPB (16:44)
--- NOTE | 2021-02-18 16:45 | DI.VRAD_ITS ---
PROCEDURE INFORMATION: Exam: XR Left Elbow Exam date and time: 02/18/2021 4:08 PM Age: 40 years old Clinical indication: Other: L elbow erythema/edema, R/O osteo TECHNIQUE: Imaging protocol: XR Left elbow. Views: 3 or more views. COMPARISON: No relevant prior studies available. FINDINGS: Bones/joints: No evidence of osteomyelitis as imaged. There is no evidence of acute fracture. There is no evidence of joint malalignment or dislocation. Soft tissues: Moderate posterior soft tissue swelling. IMPRESSION: 1. Moderate posterior soft tissue swelling. 2. No evidence of osteomyelitis as imaged. Further evaluation is recommended if symptoms persist. 3. No evidence of acute fracture. 4. No evidence of acute dislocation. Dictated and Authenticated by: Mehran Silverman MD. Ordering:JESSICA Thomason MD
[2021-02-18 16:55] LABS: ALT 32 U/L (16-63); AST 18 U/L (15-37); Albumin 4.1 g/dL (3.4-5.0); Alkaline Phosphatase 99 U/L (46-116); BUN 13 mg/dL (7-18); Bilirubin, Total 0.8 mg/dL (0.2-1.0); C-Reactive Protein 17.51 mg/dL (0.0-0.3); CREATININE 1.3 mg/dL (0.70-1.30); Chloride 101 mmol/L (98-107); Glucose 135 mg/dL (74-106); Potassium 3.7 mmol/L (3.5-5.1); Sodium 140 mmol/L (136-145); Total Protein 8.4 g/dL (6.4-8.2)
[2021-02-20 14:59] LABS: COVID-19 RT-PCR UVMMC Result Negative (Negative)
--- NOTE | 2021-02-22 11:14 | NUR.NOTE ---
left second message for patient about covid results
--- NOTE | 2021-02-22 11:29 | NUR.NOTE ---
Nursing Note: Nurse unable to contact patient. Letter mailed to patient.
== END 2021-02-18 18:02 | disposition home or self-care (01) ==
PROVIDERS: Emergency Provider Physician Assistant; PCP Internal Medicine
DX: L03.114 Cellulitis of left upper limb (principal); R05.1 Acute cough; R50.9 Fever, unspecified; Z20.822 Contact with and (suspected) exposure to COVID-19
CPT/HCPCS: 36415; 80053; 85652; 96361; 96365; 96375; 99284; U0003; 73080; 85025; 86140; J0131

== ENCOUNTER 2022-12-09 12:30 | Emergency (ER) | payer OTHER, SELFPAY ==
[2022-12-09 12:33] VITALS: BP 155/123; PULSE 106; RESP 16; TEMP 36.9; O2SAT 95
--- NOTE | 2022-12-09 12:58 | ED.GENADUL_ITS ---
Discharge Plan Disposition Patient Disposition: Home Condition: Stable Discharge Details Chief Complaint: Orthopedic Clinical Impression: Contusion of knee Primary Care Provider: Jorge Velazquez ED Provider: Jose Miguel Orta Home Meds and New Rx's Prescriptions: No Action ibuprofen 600 MG tablet 600 mg PO Q6H PRN (Reason: Pain) Qty: 20 0RF acetaminophen 500 mg Tablet 1,000 mg PO PRN PRN Discharge Instructions Instructions: Contusion in Adults (ED), Knee Pain (ED) Additional Instructions: Please continue with ice elevation rest ibuprofen and/or acetaminophen as needed for pain and swelling Medical Decision Making 42-year-old male presents after fall from forklift a short distance onto feet, did sustain superficial abrasion to left knee, pain to right knee and sensation of knee locking immediately after event, able to walk without assistance, no effusion no joint laxity, no deformity, warm well-perfused extremity neurovascular exam intact; full range of motion without crepitus, consider possible meniscal injury versus partial ligamentous injury low suspicion for fracture or dislocation. Will obtain screening x-ray, patient does not wish to have any anti-inflammatory/analgesia at this time. Home care instructions and return precautions. 14: 31 patient resting actively no acute distress ambulatory. X-ray negative for fracture or dislocation. Home care instructions and return precautions given. HPI General Date/Time Provider Initiated Documentation: 12/09/22 12:36 . HPI Narrative: 42-year-old male presents with right knee pain after falling a short distance from a forklift landing on his feet felt as if his right knee was locking, pain to anterior medial aspect of knee. Able to walk with some discomfort. No other injuries. Related Data Home Medications Medication Instructions Recorded Confirmed ibuprofen 600 mg tablet 600 mg PO Q6H PRN Pain ##20 10/15/16 12/09/22 acetaminophen 500 mg tablet 1,000 mg PO PRN PRN 02/18/21 12/09/22 Previous Rx's Medication Instructions Recorded ibuprofen 600 mg tablet 600 mg PO Q6H PRN Pain ##20 10/15/16 Allergies Allergy/AdvReac Type Severity Reaction Status Date / Time No Known Allergies Allergy Unverified 12/09/22 12:37 General Stated Complaint: Orthopedic THALIA: 3 Review of Systems Narrative: Review of Systems Constitutional: negative Eyes: negative ENT: negative Cardiovascular: negative Respiratory: negative Gastrointestinal: negative : negative Musculoskeletal: Knee pain Skin: negative Neurologic: negative Psych: negative PFSH All Active Problems (Updated 12/09/22 @ 14:32 by Jose Miguel Orta MD) Contusion of knee (Acute) Chest pain (Acute) Medical History (Updated 12/09/22 @ 14:32 by Jose Miguel Orta MD) Hypertension Surgical History No significant past surgical history Social History Smoking/Tobacco Use Status: Never Smoking risk assessment performed?: Yes Alcohol Intake: current Alcohol Intake frequency: a few times a month Drug use: Never Housing: house Do you feel safe at home: Yes Do you feel safe in your relationship?: Yes Exam Narrative Exam Narrative: Physical Examination General: alert, awake, cooperative, resting comfortably, no acute distress HEENT: normocephalic, atraumatic Skin: Superficial abrasion to left knee Neuro: AAOx3, normal speech, moving all extremities Extremities: Full range of motion flexion extension right knee, no effusion, no laxity, tenderness over medial aspect of knee; no deformity; warm well perfused sensate, DP pulse intact, no hip ankle or foot involvement, able to ambulate without assistance Course Vital Signs Vital signs: Vital Signs Temperature 36.9 C 12/09/22 12:33 Pulse 106 H 12/09/22 12:33 Respiratory Rate 16 12/09/22 12:33 Blood Pressure 155/123 H 12/09/22 12:33 Pulse Oximetry 95 12/09/22 12:33 Temperature 36.9 C 12/09/22 12:33 Temperature Source Tympanic 12/09/22 12:33 Pulse 106 H 12/09/22 12:33 Respiratory Rate 16 12/09/22 12:33 Respiratory Effort Normal, Non-Labored 12/09/22 12:36 Blood Pressure 155/123 H 12/09/22 12:33 Pulse Oximetry 95 12/09/22 12:33 Oxygen Delivery Method Room Air 12/09/22 12:33 Oxygen Flow Rate 0 12/09/22 12:33 PAWSS Have you Been Recently Intoxicated or Drunk Within the Last 30 days?: No Have you Ever Experienced Previous Episodes of Alcohol Withdrawal?: No Have you ever Experienced Withdrawal Seizures?: No Have you ever Experienced Delirium Tremens(DT)s?: No Have you ever undergone Alcohol Rehabilitation Treatment (i.e, inpt ot outpatie nt treatment programs)?: No Have you ever Experienced Blackouts?: No Have you ever Combined Alcohol with other Downers within the last 90 days?: No Have you ever Combined Alcohol with any other Substance of Abuse during the last 90 days?: No Result: 0
--- NOTE | 2022-12-09 13:23 | DI.RAD_ITS ---
Exam(s) XR KNEE RT 3V AP,LAT,JOCELYN EXAM: XR KNEE RT 3V AP,LAT,JOCELYN CLINICAL HISTORY: fall at work, knee locking. TECHNIQUE: 2D digital imaging was performed. Three views. COMPARISON: No exams were available for comparison FINDINGS: BONES: No acute fracture is present. No bony destructive lesion is seen. JOINTS: The knee is normally aligned. No joint effusion is seen. Joint spaces are maintained. No s ignificant degenerative changes. SOFT TISSUE: Normal. IMPRESSION: Unremarkable radiographs of the right knee. DATA REPOSITORY: RADIATION DOSE DELIVERED:
== END 2022-12-09 14:35 | disposition home or self-care (01) ==
PROVIDERS: Emergency Provider Emergency Medicine; PCP Internal Medicine
DX: S80.01XA Contusion of right knee, initial encounter; W17.89XA Other fall from one level to another, initial encounter; Y99.0 Civilian activity done for income or pay
CPT/HCPCS: 73562; 99283

== ENCOUNTER 2023-03-13 08:37 | Emergency (ER) | payer OTHER, SELFPAY ==
[2023-03-13 08:41] VITALS: BP 160/113; PULSE 102; RESP 18; TEMP 36.4; O2SAT 99
--- NOTE | 2023-03-13 08:43 | ED.GENADUL_ITS ---
HPI General Mode of arrival: ambulatory . Date/Time Provider Initiated Documentation: 03/13/23 08:42 . Limitations to Documentation: no limitations . Information obtained by: patient, RN notes reviewed and old records reviewed . HPI Narrative: 42-year-old male presents to the ER with a chief complaint of left elbow injury and swelling which occurred approximately a week ago. Patient reports that he was pulling and hit his elbow on an object. Now presents with swelling and redness. He does have some decreased flexion and extension to approximately 45 degrees. He denies fever axilla tenderness or bodyaches. He does have a history of bursitis in the past which she reports he was placed on antibiotics for. Related Data Home Medications Medication Instructions Recorded Confirmed ibuprofen 600 mg tablet 600 mg PO Q6H PRN Pain ##20 10/15/16 03/13/23 acetaminophen 500 mg tablet 1,000 mg PO PRN PRN 02/18/21 03/13/23 cephalexin 500 mg tablet 500 mg PO BID 10 days #20 tabs 03/13/23 Previous Rx's Medication Instructions Recorded ibuprofen 600 mg tablet 600 mg PO Q6H PRN Pain ##20 10/15/16 cephalexin 500 mg tablet 500 mg PO BID 10 days #20 tabs 03/13/23 Allergies Allergy/AdvReac Type Severity Reaction Status Date / Time No Known Allergies Allergy Unverified 03/13/23 08:43 General Stated Complaint: Orthopedic THALIA: 4 Review of Systems All systems reviewed & are unremarkable except as noted in HPI and below Musculoskeletal Musculoskeletal: Reports as per HPI, Reports joint swelling, Reports limited range of motion, Denies radiating pain into limb and Reports stiffness Exam Extrem Left upper extremity: elbow/forearm Details: abnormal to inspection Details: joint swelling and erythema (Approximately 6 cm x 6 cm area circumferential of erythema consistent with bursitis), tenderness Location: of the olecranon, swelling Location: of the olecranon, abnormal ROM, warmth and distal pulses intact; no abrasions, no lacerations, no ecchymosis, no crepitus and no penetrating wound Course Vital Signs Vital signs: Vital Signs Temperature 36.4 C L 03/13/23 08:41 Pulse 102 H 03/13/23 08:41 Respiratory Rate 18 03/13/23 08:41 Blood Pressure 160/113 H 03/13/23 08:41 Pulse Oximetry 99 03/13/23 08:41 Temperature 36.4 C L 03/13/23 08:41 Temperature Source Tympanic 03/13/23 08:41 Pulse 102 H 03/13/23 08:41 Respiratory Rate 18 03/13/23 08:41 Blood Pressure 160/113 H 03/13/23 08:41 Blood Pressure Position Sitting 03/13/23 08:41 Pulse Oximetry 99 03/13/23 08:41 Oxygen Delivery Method Room Air 03/13/23 08:41 Oxygen Flow Rate 0 03/13/23 08:41 Medical Decision Making 42-year-old male presents to the ER with a chief complaint of left elbow injury and swelling which occurred approximately a week ago. Patient reports that he was pulling and hit his elbow on an object. Now presents with swelling and redness. He does have some decreased flexion and extension to approximately 45 degrees. He denies fever axilla tenderness or bodyaches. He does have a history of bursitis in the past which she reports he was placed on antibiotics for. He did take Aleve and Tylenol prior to arrival. Denies any surgeries. Imaging left elbow ordered. Differential diagnosis includes but not limited to fracture, occult fracture, traumatic bursitis, less likely septic joint. See x-ray result noted below. There is a tiny olecranon spur and some swelling. No joint effusion seen. I am suspecting traumatic bursitis with possible infected bursitis. I will place an order for Aldair wrap, instructed on RICE procedures and give patient antibiotic/cephalexin. Discussed x-ray results with patient home care including RICE procedures and antibiotics he verbalizes understanding. Instructed to follow-up with orthopedics or his PCP if it gets any worse or also to return to the ER. This text was generated using [employer] system, please disregard any oddities of phrase or misspellings. Imaging Data Radiologic Study: Imaging: X-Ray Radiologist's impression: EXAM: XR ELBOW LT COMPLETE CLINICAL HISTORY: Swelling, Injury. TECHNIQUE: 2D digital imaging was performed. Three views. COMPARISON: No exams were available for comparison FINDINGS: BONES: No acute fracture is present. No bony destructive lesion is seen. Tiny olecranon spur. JOINTS: The elbow is normally aligned. No joint effusion is seen. SOFT TISSUE: Swelling over olecranon. IMPRESSION: Soft tissue swelling. Quality:SDOH Health Related Social Needs: No Data to Display PFSH All Active Problems (Updated 03/13/23 @ 09:20 by Amelia Montenegro NP) Traumatic bursitis (Acute) Olecranon bursitis of left elbow (Acute) Chest pain (Acute) Medical History (Updated 03/13/23 @ 09:20 by Amelia Montenegro NP) Hypertension Surgical History No significant past surgical history Social History Smoking/Tobacco Use Status: Never Smoking risk assessment performed?: Yes Alcohol Intake: current Alcohol Intake frequency: a few times a month Drug use: Never Substance use type: does not use Housing: house Do you feel safe at home: Yes Do you feel safe in your relationship?: Yes Discharge Plan Disposition Patient Disposition: Home Condition: Stable Discharge Details Clinical Impression: Olecranon bursitis of left elbow, Traumatic bursitis Primary Care Provider: Jorge Velazquez ED Provider: Amelia Montenegro Home Meds and New Rx's Prescriptions: New cephalexin 500 mg tablet 500 mg PO BID 10 Days Qty: 20 0RF No Action ibuprofen 600 MG tablet 600 mg PO Q6H PRN (Reason: Pain) Qty: 20 0RF acetaminophen 500 mg Tablet 1,000 mg PO PRN PRN Discharge Instructions Instructions: Elbow Bursitis (ED), R.I.C.E. Treatment (ED) Additional Instructions: Wear the sling and Aldair wrap as needed for comfort. You do have a tiny spur on your elbow this could be from a previous injury or a small fracture. Please take the antibiotic as directed with yogurt or probiotic. Follow up with orthopedics/primary care provider in 3-5 days if any worse. Return to ED sooner if any worsening or concerns. Increase oral fluids. Please take Tylenol or Ibuprofen with food every 4-6 hours as needed for pain and swelling. Stand Alone Forms: Work Release Referrals: Walt Ny MD [ [facility] STAFF PHYSICIAN] - Return if symptoms worsen Jorge Velazquez MD [Primary Care Provider] - Discharge Data Discharge Date/Time-TO BE ENTERED AT DEPARTURE: 03/13/23 09:33
--- NOTE | 2023-03-13 09:00 | DI.RAD_ITS ---
Exam(s) XR ELBOW LT COMPLETE EXAM: XR ELBOW LT COMPLETE CLINICAL HISTORY: Swelling, Injury. TECHNIQUE: 2D digital imaging was performed. Three views. COMPARISON: No exams were available for comparison FINDINGS: BONES: No acute fracture is present. No bony destructive lesion is seen. Tiny olecranon spur. JOINTS: The elbow is normally aligned. No joint effusion is seen. SOFT TISSUE: Swelling over olecranon. IMPRESSION: Soft tissue swelling. DATA REPOSITORY: RADIATION DOSE DELIVERED:
[2023-03-13 09:04] VITALS: BP 157/104; PULSE 94; RESP 18; O2SAT 98
[2023-03-13] MEDS: Cephalexin 500 MG CAP PO (09:17)
[2023-03-13] MEDS: Cephalexin 500 MG CAP, 2 CAPS/BTL PO (09:18)
== END 2023-03-13 09:33 | disposition home or self-care (01) ==
PROVIDERS: Emergency Provider Registered Nurse Emergency; PCP Internal Medicine
DX: M25.522 Pain in left elbow (principal); M70.22 Olecranon bursitis, left elbow
CPT/HCPCS: 99283; 73080

== ENCOUNTER 2023-09-28 06:51 | Emergency (ER) | payer BC, SELFPAY ==
[2023-09-28 06:55] VITALS: BP 132/109; PULSE 115; RESP 18; TEMP 36.1; O2SAT 99
--- NOTE | 2023-09-28 07:00 | RT.EKG_ITS ---
APPROVED REPORT Exam: Resting ECG Reason for Exam: leg swelling Patient Location: E HR:91 bpm ECG Measurements Heart Rate 91 AXIS MI 157 P 22 QRSd 96 QRS 49 QT 331 T 8 QTc 407 Conclusion Sinus rhythm...normal P axis, V-rate 60- 99
[2023-09-28] MEDS: ACETAMINOPHEN 1,000 MG/100 ML BTL 400 MG IVPB (07:46)
[2023-09-28 08:14] LABS: Abs Immature Grans 0.02 10^3/uL (0.0-0.06); Absolute Basophil Count 0.01 10^3/uL (0.0-0.2); Absolute Eosinophil Count 0.04 10^3/uL (0.0-0.7); Absolute Lymphocyte Count 1.13 10^3/uL (1.2-3.4); Absolute Monocyte Count 0.55 10^3/uL (0.1-0.8); Absolute Neutrophil Count 4.29 10^3/uL (1.2-6.7); Basophils % 0.2 %; Eosinophils % 0.7 %; HCT 45.5 % (40.0-50.0); HGB 15.2 g/dL (13.5-17.5); Immature Grans % 0.3 %; Lymphocytes % 18.7 %; MCH 30.6 pg (27.0-33.0); MCHC 33.4 % (32.0-36.0); MCV 92 fL (80-95); MPV 9.9 fL (8.0-11.0); Monocytes % 9.1 %; Platelet Count 185 10^3/uL (130-400); RBC 4.97 10^6/uL (4.36-5.78); RDW 11.9 % (11.8-14.1); RDW-SD 39.8 fL; WBC 6.04 10^3/uL (4.4-10.8)
[2023-09-28 08:28] LABS: ALT 38 U/L (16-63); AST 20 U/L (15-37); Albumin 4.2 g/dL (3.4-5.0); Alkaline Phosphatase 101 U/L (46-116); BUN 16 mg/dL (7-18); Bilirubin, Total 0.65 mg/dL (0.2-1.0); CREATININE 1.3 mg/dL (0.70-1.30); Calcium 9.5 mg/dL (8.5-10.1); Chloride 103 mmol/L (98-107); Estimated GFR 70.34 (mL/min/1.73m2); Glucose 136 mg/dL (74-106); Magnesium 1.9 mg/dL (1.8-2.4); Potassium 4.2 mmol/L (3.5-5.1); Sodium 140 mmol/L (136-145); Total Protein 8.3 g/dL (6.4-8.2)
[2023-09-28 08:36] LABS: NT-proBNP 18 pg/mL (<300)
--- NOTE | 2023-09-28 08:50 | W.ED.GENAD ---
Discharge Plan Disposition Patient Disposition: Home Condition: Stable Discharge Details Chief Complaint: GenMedical Clinical Impression: Bilateral swelling of feet, Hyperglycemia, Elevated blood pressure reading Primary Care Provider: Jorge Velazquez ED Provider: Chaim Mayers Home Meds and New Rx's Prescriptions: No Action ibuprofen 600 MG tablet 600 mg PO Q6H PRN (Reason: Pain) Qty: 20 0RF acetaminophen 500 mg Tablet 1,000 mg PO PRN PRN Discharge Instructions Instructions: Swelling, High Blood Sugar, Adult ED Additional Instructions: Stay off your feet over the next couple days and keep your legs elevated as much as possible. Your blood pressure was elevated today at 132/109. This is too high. Please be sure to discuss this with your doctor. Additional outpatient diagnostic studies and treatment may be necessary. Your blood sugar was elevated today at 136. Please be sure to discuss this with your doctor. Additional outpatient diagnostic studies and treatment may be necessary. A tick panel was performed today and pending at time of discharge. Results should be available within a few days. If results are concerning, you will be contacted. Please be sure to discuss results with your primary care physician. Please contact your primary care physician to arrange follow-up. Return to the ER immediately for any worsening or new concerning symptoms. Stand Alone Forms: Work Release Referrals: Jorge Velazquez MD [Primary Care Provider] - [facility] General Mode of arrival: ambulatory. Date/Time Provider Initiated Documentation: 09/28/23 07:03. Limitations to Documentation: no limitations. Information obtained by: patient. HPI Narrative: 42-year-old male presents with chief complaint of foot pain and swelling. Patient notes bilateral swelling of his feet with pain since yesterday. Pain is severe and worse with ambulation. Patient denies injury. No associated fever. No rash. No known tick bites. Patient notes he has had similar in the past and also notes prior inflammation of his hands and knees. Related Data Home Medications ?Medication ?Instructions ?Recorded ?Confirmed ibuprofen 600 mg tablet 600 mg PO Q6H PRN Pain ##20 10/15/16 03/13/23 acetaminophen 500 mg tablet 1,000 mg PO PRN PRN 02/18/21 03/13/23 Previous Rx's ?Medication ?Instructions ?Recorded ibuprofen 600 mg tablet 600 mg PO Q6H PRN Pain ##20 10/15/16 Allergies Allergy/AdvReac Type Severity Reaction Status Date / Time No Known Allergies Allergy Unverified 03/13/23 08:43 General Stated Complaint: GenMedical THALIA: 3 Review of Systems All systems reviewed & are unremarkable except as noted in HPI and below Constitutional Constitutional: Denies fever(s) Musculoskeletal Musculoskeletal: Reports as per HPI Exam Const General: cooperative and no acute distress HENPR Mouth: moist mucous membranes Eyes Conjunctivae: normal conjunctivae Sclera: normal sclerae Resp Auscultation: clear to auscultation bilaterally, no rales, no rhonchi and no wheezes Cardio Rate: regular rate and not tachycardic Rhythm: regular rhythm GI Palpation: soft, not firm, no guarding, no masses, not rigid and nontender Skin General skin exam: no rashes or lesions noted Neuro General: patient alert, patient awake and tone normal Extrem General: edema Laterality: bilateral (Mild proximal foot and ankle) Other: Bilateral lower extremities: No pitting edema. No pretibial edema. No erythema. No warmth. FROM. Course Vital Signs Vital signs: Vital Signs Temperature 36.1 C L 09/28/23 06:55 Pulse 115 H 09/28/23 06:55 Respiratory Rate 18 09/28/23 06:55 Blood Pressure 132/109 H 09/28/23 06:55 Pulse Oximetry 99 09/28/23 06:55 Temperature 36.1 C L 09/28/23 06:55 Pulse 115 H 09/28/23 06:55 Respiratory Rate 18 09/28/23 06:55 Respiratory Effort Normal, Non-Labored 09/28/23 08:37 Blood Pressure 132/109 H 09/28/23 06:55 Pulse Oximetry 99 09/28/23 06:55 Oxygen Delivery Method Room Air 09/28/23 06:55 Oxygen Flow Rate 0 09/28/23 06:55 Pain Level 0 09/28/23 07:46 Lab/Test Results Lab/Test Results: Laboratory Tests Range/Units 09/28/23 07:35 WBC (4.4-10.8) 10^3/uL 6.04 RBC (4.36-5.78) 10^6/uL 4.97 Hgb (13.5-17.5) g/dL 15.2 Hct (40.0-50.0) % 45.5 MCV (80-95) fL 92 MCH (27.0-33.0) pg 30.6 MCHC (32.0-36.0) % 33.4 RDW (11.8-14.1) % 11.9 Plt Count (130-400) 10^3/uL 185 MPV (8.0-11.0) fL 9.9 Immature Gran % % 0.3 Neutrophils % % 71.0 Lymphocytes % % 18.7 Monocytes % % 9.1 Eosinophils % % 0.7 Basophils % % 0.2 Nucleated RBC % (0.0-0.3) % 0.0 Absolute Neutrophils (1.2-6.7) 10^3/uL 4.29 Absolute Lymphocytes (1.2-3.4) 10^3/uL 1.13 L Absolute Monocytes (0.1-0.8) 10^3/uL 0.55 Absolute Eosinophils (0.0-0.7) 10^3/uL 0.04 Absolute Basophils (0.0-0.2) 10^3/uL 0.01 Sodium (136-145) mmol/L 140 Potassium (3.5-5.1) mmol/L 4.2 Chloride (98-107) mmol/L 103 Carbon Dioxide (21.0-32.0) mmol/L 31.0 Anion Gap (3-11) mmol/L 6.0 BUN (7-18) mg/dL 16 Creatinine (0.70-1.30) mg/dL 1.3 Est GFR (CKD-EPI 2020) (mL/min/1.73m2) 70.34 Glucose (74-106) mg/dL 136 H Calcium (8.5-10.1) mg/dL 9.5 Magnesium (1.8-2.4) mg/dL 1.9 Total Bilirubin (0.2-1.0) mg/dL 0.65 AST (15-37) U/L 20 ALT (16-63) U/L 38 Alkaline Phosphatase (46-116) U/L 101 NT-Pro-B Natriuret Pep (<300) pg/mL 18 Total Protein (6.4-8.2) g/dL 8.3 H Albumin (3.4-5.0) g/dL 4.2 Medical Decision Making 42-year-old male here with bilateral foot pain and swelling since yesterday. Patient does note he works on his feet and has long days. He does not recall any specific trauma. Patient does note prior similar flares in the past and also intermittent swelling and pain in other joints. He has no associated fever. No rash. No known tick bites. Considered Lyme disease: Screening EKG was reviewed and interpreted by me: Sinus rhythm 91 bpm, normal axis, normal intervals. Tick panel pending. Patient does have bilateral edema on exam. Edema is nonpitting and localized to his feet. Suspect lymphedema. I considered acute renal insufficiency and cardiac etiology. Labs reviewed and nondiagnostic. Incidentally noted is hyperglycemia with fasting blood sugar of 136. All results were discussed with the patient. Plan for rest and elevation over the next couple days. Plan for outpatient follow-up with PCP. Lab Data Lab results reviewed: Yes I reviewed the patient's lab results. Labs: Laboratory Tests Range/Units 09/28/23 07:35 WBC (4.4-10.8) 10^3/uL 6.04 RBC (4.36-5.78) 10^6/uL 4.97 Hgb (13.5-17.5) g/dL 15.2 Hct (40.0-50.0) % 45.5 MCV (80-95) fL 92 MCH (27.0-33.0) pg 30.6 MCHC (32.0-36.0) % 33.4 RDW (11.8-14.1) % 11.9 Plt Count (130-400) 10^3/uL 185 MPV (8.0-11.0) fL 9.9 Immature Gran % % 0.3 Neutrophils % % 71.0 Lymphocytes % % 18.7 Monocytes % % 9.1 Eosinophils % % 0.7 Basophils % % 0.2 Nucleated RBC % (0.0-0.3) % 0.0 Absolute Neutrophils (1.2-6.7) 10^3/uL 4.29 Absolute Lymphocytes (1.2-3.4) 10^3/uL 1.13 L Absolute Monocytes (0.1-0.8) 10^3/uL 0.55 Absolute Eosinophils (0.0-0.7) 10^3/uL 0.04 Absolute Basophils (0.0-0.2) 10^3/uL 0.01 Sodium (136-145) mmol/L 140 Potassium (3.5-5.1) mmol/L 4.2 Chloride (98-107) mmol/L 103 Carbon Dioxide (21.0-32.0) mmol/L 31.0 Anion Gap (3-11) mmol/L 6.0 BUN (7-18) mg/dL 16 Creatinine (0.70-1.30) mg/dL 1.3 Est GFR (CKD-EPI 2020) (mL/min/1.73m2) 70.34 Glucose (74-106) mg/dL 136 H Calcium (8.5-10.1) mg/dL 9.5 Magnesium (1.8-2.4) mg/dL 1.9 Total Bilirubin (0.2-1.0) mg/dL 0.65 AST (15-37) U/L 20 ALT (16-63) U/L 38 Alkaline Phosphatase (46-116) U/L 101 NT-Pro-B Natriuret Pep (<300) pg/mL 18 Total Protein (6.4-8.2) g/dL 8.3 H Albumin (3.4-5.0) g/dL 4.2 Quality:SDOH Health Related Social Needs: No Data to Display PFSH All Active Problems Elevated blood pressure reading (Acute) Hyperglycemia (Acute) Bilateral swelling of feet (Acute) Chest pain (Acute) Medical History Hypertension Surgical History No significant past surgical history Social History Smoking/Tobacco Use Status: Never Smoking risk assessment performed?: Yes Alcohol Intake: current Alcohol Intake frequency: a few times a month Drug use: Never Substance use type: does not use Housing: house Do you feel safe at home: Yes Do you feel safe in your relationship?: Yes PAWSS Have you Been Recently Intoxicated or Drunk Within the Last 30 days?: No Have you Ever Experienced Previous Episodes of Alcohol Withdrawal?: No Have you ever Experienced Withdrawal Seizures?: No Have you ever Experienced Delirium Tremens(DT)s?: No Have you ever undergone Alcohol Rehabilitation Treatment (i.e, inpt ot outpatient treatment programs)?: No Have you ever Experienced Blackouts?: No Have you ever Combined Alcohol with other Downers within the last 90 days?: No Have you ever Combined Alcohol with any other Substance of Abuse during the last 90 days?: No Result: 0
[2023-09-28] MEDS: Ketorolac 15 MG/ML VIAL IVP (09:10)
[2023-09-28 09:13] VITALS: BP 145/102; PULSE 88; RESP 18; O2SAT 20
[2023-09-29 10:29] LABS: Lyme Ab w Rflx to Lyme Confirm Negative (Negative)
[2023-10-03 00:58] LABS: Anaplasma phagocytophilum Negative (Negative); B. miyamotoi PCR Negative (Negative); Babesia divergens/MO-1 Negative (Negative); Babesia duncani Negative (Negative); Babesia microti Negative (Negative); Ehrlichia chaffeensis Negative (Negative); Ehrlichia ewingii/canis Negative (Negative); Ehrlichia muris eauclairensis Negative (Negative)
== END 2023-09-28 09:13 | disposition home or self-care (01) ==
PROVIDERS: Emergency Provider Student in an Organized Health Care Education/Training Program; PCP Internal Medicine
DX: M79.671 Pain in right foot (principal); M79.672 Pain in left foot; R22.43 Localized swelling, mass and lump, lower limb, bilateral; R03.0 Elevated blood-pressure reading, without diagnosis of hypertension; R73.9 Hyperglycemia, unspecified
CPT/HCPCS: 36415; 80053; 87798; 93005; 96374; 96375; 99284; 83735; 83880; 85025; 86618; 93010; 99283; J0131; J1885

== ENCOUNTER 2023-10-01 13:47 | Outpatient (REF) | payer BC, SELFPAY ==
--- OUTSIDE RECORDS SUMMARY | 2023-10-01 13:49 | XMS_ITS | Encounter Summary ---
Author Organization [facility] Address [address] [place] [address] Care Team Providers Care Vacuum Cleaner Repairer Name Role Phone Unavailable Primary Care Provider Unavailabl e Encounter Details Date Type Department Care Team (Late st Contact Info) Description 09/28/2023 Lab Requisition [facility] Pathology & Laboratory Medicine - [facility] [address] [place] [address] Outr Resulting Lab, Provider Social History Tobacco Use Types Packs/Day Years Used Date Smoking Tobacco: Never Assessed Sex and Gender Information Value Date Recorded Sex Assigned at Not on file Gender Identity Not on file Sexual Orientation Not on file documented as of this encounter Plan of Treatment Not on file documented as of this encounter Procedures Procedure Name Priority Date/Time Associated Diagnosis Comments LYME AB Routine 09/28/2023 7:35 EDT documented in this encounter Results * LYME AB (09/28/2023 7:35 EDT) Lyme Ab Negative Negative 09/29/2023 10:24 EDT [facility] Blood VENOUS BLOOD / Unknown 09/28/2023 7:35 EDT 09/28/2023 17:46 EDT Provider Outr Resulting Lab IMMUNOLOGY A ND SEROLOGY ORDERABLES [facility] [address] [place], [place] [id number] documented in this encounter Visit Diagnoses Not on filedocumented in this encounter
--- OUTSIDE RECORDS SUMMARY | 2023-10-01 13:49 | XMS_ITS | Clinical Summary ---
Author Organization [facility] Address [address] [place] [address] Care Team Providers Care Granulating Machine Operator Name Role Phone Unavailable Primary Care Provider Unavailabl e Encounters Date Type Department Care Team Description 09/28/2023 Lab Requisition [facility] Pathology & Laboratory Medicine - [facility] [address] [place] [address] Outr Resulting Lab, Provider from Last 3 Months Social History Tobacco Use Types Packs/Day Years Used Date Smoking Tobacco: Never Assessed Sex and Gender Information Value Date Recorded Sex Assigned at Not on file Gender Identity Not on file Sexual Orientation Not on file Plan of Treatment Health Maintenance Due Date Last Done Comments Hepatitis C Screen 1980 Hepatitis B Vaccine (1 of 3 - 19+ 3-dose series) 11/08 COVID-19 Vaccine (2022- season) 2022 Procedures Procedure Name Priority Date/Time Associated Diagnosis Comments LYME AB Routine 09/28/2023 7:35 EDT from Last 3 Months Results * LYME AB (09/28/2023 7:35 EDT) Lyme Ab Negative Negative 09/29/2023 10:24 EDT [facility] Blood VENOUS BLOOD / Unknown 09/28/2023 7:35 EDT 09/28/2023 17:46 EDT Provider Outr Resulting Lab IMMUNOLOGY A ND SEROLOGY ORDERABLES [facility] [address] [place], [place] [address] from Last 3 Months
--- OUTSIDE RECORDS SUMMARY | 2023-10-01 13:49 | XMS_ITS | Referral Summary ---
Author Organization [facility] Address [address] [place] [address] Care Team Providers Care Guardian Family Member Name Role Phone Unavailable Primary Care Provider Unavailabl e Encounters Date Type Department Care Team Description 09/28/2023 Lab Requisition [facility] Pathology & Laboratory Medicine - [facility] [address] [place] [address] Outr Resulting Lab, Provider from Last 3 Months Social History Tobacco Use Types Packs/Day Years Used Date Smoking Tobacco: Never Assessed Sex and Gender Information Value Date Recorded Sex Assigned at Not on file Gender Identity Not on file Sexual Orientation Not on file Plan of Treatment Not on file Procedures Procedure Name Priority Date/Time Associated Diagnosis Comments LYME AB Routine 09/28/2023 7:35 EDT from Last 3 Months Results * LYME AB (09/28/2023 7:35 EDT) Lyme Ab Negative Negative 09/29/2023 10:24 EDT [facility] Blood VENOUS BLOOD / Unknown 09/28/2023 7:35 EDT 09/28/2023 17:46 EDT Provider Outr Resulting Lab IMMUNOLOGY A ND SEROLOGY ORDERABLES [facility] [address] [place] [address] from Last 3 Months
--- OUTSIDE RECORDS SUMMARY | 2023-10-01 13:50 | XMS_ITS | Encounter Summary ---
Author Organization [facility] Address [address] [place] [address] Care Team Providers Care Frame Hand Name Role Phone Unavailable Primary Care Provider Unavailabl e Encounter Details Date Type Department Care Team (Late st Contact Info) Description 02/19/2021 Lab Requisition [facility] Pathology & Laboratory Medicine - [facility] [address] [place] [address] Outr Resulting Lab, Provider Social History Tobacco [...] Procedure Name Priority Date/Time Associated Diagnosis Comments ZZCOVID-19 TEST [facility] PCR Today 02/18/2021 15:20 EST COVID-19 TESTING Routine 02/18/2021 15:2 0 EST documented in this encounter Results * COVID-19 TEST [facility] PCR (02/18/2021 15:20 EST) Swab 02/18/2021 15:2 0 EST 02/19/2021 23:51 EST Provider Outr Resulting Lab MICROBIOLOGY - GENERAL ORDERABLES [facility] [address] [place] [address] * COVID-19 TESTING (02/18/2021 15:20 EST) COVID-19 rt-PCR Result Negative Negative 02/20/2021 14:53 EST [facility] Comment: This test has not been FDA cleared or approved. This test has been authorized by FDA under an EUA for use by authorized laboratories. This test has been authorized only for detection of nucleic acid from 2019-nCoV, not for any other viruses or pathogens. This test is only authorized for the duration of the declaration that circumstances exist justifying the authorization of emergency use of in vitro diagnostic tests for detection and/or diagnosis of 2019-nCoV under section 564(b)(1) of Act, 21 U.S.C ?? 360bbb-3(b) (1), unless the authorization is terminated or revoked sooner. Negative results do not preclude 2019-nCoV infection and should not be used as the sole basis for treatment or other patient management decisions. Negative results must be combined with clinical observations, patient history, and epidemiological information. Testing was performed using the xochilt SARS-CoV-2 assay ([employer] on the Xochilt 6800 System Performing Lab Xochilt 68[address] [facility] 02/20/2021 14:53 EST [facility] Swab 02/18/2021 15:2 0 EST 02/19/2021 23:51 EST Provider Outr Resulting Lab MICROBIOLOGY - GENERAL ORDERABLES [facility] [address] [place] [address] documented in this encounter Visit Diagnoses Not on filedocumented in this encounter
[2023-10-01 15:38] LABS: Uric Acid 7.8 mg/dL (3.5-7.2)
[2023-10-01 17:35] LABS: Calculated LDL 177 mg/dL (<100); Cholesterol 256 mg/dL (<200); HDL Cholesterol 38 mg/dL (40-60); Triglyceride 209 mg/dL (<150)
== END 2023-10-01 13:48 | disposition home or self-care (01) ==
LOC: NCHCN 13:47
PROVIDERS: PCP Family Medicine; Visit Provider Family Medicine
DX: I10 Essential (primary) hypertension (principal); M25.571 Pain in right ankle and joints of right foot
CPT/HCPCS: 80061; 84550

== ENCOUNTER 2023-11-03 20:30 | Outpatient (REF) | payer BC, SELFPAY ==
--- OUTSIDE RECORDS SUMMARY | 2023-11-03 20:32 | XMS_ITS | Data Portability ---
Author Organization [place] - [facility] Address [place] [address] Assessment No assessment recorded. Plan of Treatment Reminders Order Date Submit Date Provider Last Modified By Organization Details Last Modified Time Details Appointments Office Visit 2023 02:40P M Not available Not available Not available Annual Wellness Exam 2024 02:10P M Not available Not available Not available Lab uric acid, serum or plasma 2023 024 [facility] (Registration ), [address] [place] [address] [place], [address], 10/02/2023 09:13:26 lipids, total, serum 2023 024 [facility] (Registration ), [address] [place] [address] [place], [address], 10/02/2023 09:13:35 Referral None recorded. Procedures None recorded. Surgeries None recorded. Imaging XR, knee, 3 view [address] [facility], [address], [place], [address], 10/14/2023 11:36:49 XR, ankle, 3 or more view [address] [facility], [address], [place], [address], 10/14/2023 11:36:35 Medication Orders valsartan 160 mg tablet 2023 024 [facility], [address] [place], [address], 10/01/2023 12:18:56 prednison e 20 mg tablet 2023 [facility], [address] [place], [address], 11/03/2023 14:59:38 Patient TargetsNo targets recorded. Patient Instructions Encounter Date Encounter Id Patient Instructions Last Modified By Organization Details Last Modified Time 10/03/2023 [id number] pt has had similar episodes every year for the last 5 years resolved with motrin, recent testing neg for tick borne ds, uric acid level reportedly elevated, dx presumptively gout. Has also effected elbow in the past, rec course prednisone, no ibuprofen but tylenol okay, and advised calling PMD Thursday for follow up, no family hx of rheumatologic ds, infectious etiology seems very unlikely pheaghney Not available 10/03/2023 13:09:45 Reason for Referral None Reported. Results Created Date Observation Date Name Description Value Unit Range Abnormal Flag Note LastModifiedBy Organization Detail LastModifiedTime 09/28/1909/28/2023 COMPL ETE BLOOD COUNT W/DIF F WBC 6.04 10_3/ uL 4.4-10 .8 normal Not Available [address] [place], [address] 09/28/2023 08:22:00 09/28/19 24 09/28/2023 COMPL ETE BLOOD COUNT W/DIF F RBC 4.97 10_6/ uL 4.36-5 .78 normal Not Available [address] [place], [address] 09/28/2023 08:22:00 09/28/19 24 09/28/2023 COMPL ETE BLOOD COUNT W/DIF F HGB 15.2 g/dL 13.5-1 7.5 normal Not Available [address] [place], [address] 09/28/2023 08:22:00 09/28/19 24 09/28/2023 COMPL ETE BLOOD COUNT W/DIF F HCT 45.5 % 40.0-5 0.0 normal Not Available [address] [place], [address] 09/28/2023 08:22:00 09/28/1909/28/2023 COMPL ETE BLOOD COUNT W/DIF F MCV 92 fL 80-95 normal Not Available Tammy [address] [place], [address] 09/28/2023 08:22:00 09/28/1909/28/2023 COMPL ETE BLOOD COUNT W/DIF F MCH 30.6 pg 27.0-3 3.0 normal Not Available [address] [place], [address] 09/28/2023 08:22:00 09/28/1909/28/2023 COMPL ETE BLOOD COUNT W/DIF F MCHC 33.4 % 32.0-3 6.0 normal Not Available [address] [place], [address] 09/28/2023 08:22:00 09/28/19 24 09/28/2023 COMPL ETE BLOOD COUNT W/DIF F RDW 11.9 % 11.8-1 4.1 normal Not Available [address] [place], [address] 09/28/2023 08:22:00 09/28/1909/28/2023 COMPL ETE BLOOD COUNT W/DIF F platelet count 185 10_3/ uL 130-40 0 normal Not Available [address] [place], [address] 09/28/2023 08:22:00 09/28/1909/28/2023 COMPL ETE BLOOD COUNT W/DIF F MPV 9.9 fL 8.0-11 .0 normal Not Available [address] [place], [address] 09/28/2023 08:22:00 09/28/1909/28/2023 COMPL ETE BLOOD COUNT W/DIF F neutrophils % 71.0 % Not Available Nicky yi [address] [place], [address] 09/28/2023 08:22:00 09/28/1909/28/2023 COMPL ETE BLOOD COUNT W/DIF F lymphocytes % 18.7 % Not Available [address] [place], [address] 09/28/2023 08:22:00 09/28/19 24 09/28/2023 COMPL ETE BLOOD COUNT W/DIF F monocytes % 9.1 % Not Available [address] [place], [address] 09/28/2023 08:22:00 09/28/19 24 09/28/2023 COMPL ETE BLOOD COUNT W/DIF F eosinophils % 0.7 % Not Available [address] [place], [address] 09/28/2023 08:22:00 09/28/19 24 09/28/2023 COMPL ETE BLOOD COUNT W/DIF F basophils % 0.2 % Not Available [address] [place], [address] 09/28/2023 08:22:00 09/28/19 24 09/28/2023 COMPL ETE BLOOD COUNT W/DIF F immature grans % 0.3 % Not Available [address] [place], [address] 09/28/2023 08:22:00 09/28/19 24 09/28/2023 COMPL ETE BLOOD COUNT W/DIF F nucleated RBC 0.0 % 0.0-0. 3 normal Not Available [address] [place], [address] 09/28/2023 08:22:00 09/28/19 24 09/28/2023 COMPL ETE BLOOD COUNT W/DIF F absolute neutrophil count 4.29 10_3/ uL 1.2-6. 7 normal Not Available [address] [place], [address] 09/28/2023 08:22:00 09/28/19 24 09/28/2023 COMPL ETE BLOOD COUNT W/DIF F absolute lymphocyte count 1.13 10_3/ uL 1.2-3. 4 low Not Available [address] [place], [address] 09/28/2023 08:22:00 09/28/19 24 09/28/2023 COMPL ETE BLOOD COUNT W/DIF F absolute monocyte count 0.55 10_3/ uL 0.1-0. 8 normal Not Available [address] [place], [address] 09/28/2023 08:22:00 09/28/19 24 09/28/2023 COMPL ETE BLOOD COUNT W/DIF F absolute eosinophil count 0.04 10_3/ uL 0.0-0. 7 normal Not Available [address] [place], [address] 09/28/2023 08:22:00 09/28/19 24 09/28/2023 COMPL ETE BLOOD COUNT W/DIF F absolute basophil count 0.01 10_3/ uL 0.0-0. 2 normal Not Available [address] [place], [address] 09/28/2023 08:22:00 09/28/19 24 09/28/2023 COMPR EHENS ROSY METAB OLIC PANEL calcium 9.5 mg/dL 8.5-10 .1 normal Not Available [address] [place], [address] 09/28/2023 08:31:21 09/28/1909/28/2023 COMPR EHENS ROSY METAB OLIC PANEL glucose 136 mg/dL 74-106 high Not Available Tammy cole [address] [place], [address] 09/28/2023 08:31:21 09/28/1909/28/2023 COMPR EHENS ROSY METAB OLIC PANEL BUN 16 mg/dL 7-18 normal Not Available Tammy cole [address] [place], [address] 09/28/2023 08:31:21 09/28/19 24 09/28/2023 COMPR EHENS ROSY METAB OLIC PANEL creatinine 1.3 mg/dL 0.70-1 .30 normal Not Available [address] [place], [address] 09/28/2023 08:31:21 09/28/19 24 09/28/2023 COMPR EHENS ROSY METAB OLIC PANEL estimated GFR 70.34 mL/min /1.73m 2 The eGFR is calcu lated from a serum creat inine using the CKD-E PI 2020 equat ion. Other varia bles requi red for the equat ion are gende r and age; this equat ion does not inclu de a race coeff icien t. This equat ion has simil ar overa ll perfo rmanc e to previ ous equat ions excep t value s may diffe r, in parti cular , in patie nts with highe r value s of eGFR and young er-ag ed adult s. Not Available [address] [place], [address] 09/28/2023 08:31:21 09/28/19 24 09/28/2023 COMPR EHENS ROSY METAB OLIC PANEL total protein 8.3 g/dL 6.4-8. 2 high Not Available [address] [place], [address] 09/28/2023 08:31:21 09/28/19 24 09/28/2023 COMPR EHENS ROSY METAB OLIC PANEL albumin 4.2 g/dL 3.4-5. 0 normal Not Available [address] [place], [address] 09/28/2023 08:31:21 09/28/19 24 09/28/2023 COMPR EHENS ROSY METAB OLIC PANEL bilirubin, total 0.65 mg/dL 0.2-1. 0 normal Not Available [address] [place], [address] 09/28/2023 08:31:21 09/28/19 24 09/28/2023 COMPR EHENS ROSY METAB OLIC PANEL alk phos 101 U/L 46-116 normal Not Available [address] [place], [address] 09/28/2023 08:31:21 09/28/19 24 09/28/2023 COMPR EHENS ROSY METAB OLIC PANEL sodium 140 mmol/ L 136-14 5 normal Not Available [address] [place], [address] 09/28/2023 08:31:21 09/28/19 24 09/28/2023 COMPR EHENS ROSY METAB OLIC PANEL potassium 4.2 mmol/ L 3.5-5. 1 normal Not Available [address] [place], [address] 09/28/2023 08:31:21 09/28/19 24 09/28/2023 COMPR EHENS ROSY METAB OLIC PANEL chloride 103 mmol/ L 98-107 normal Not Available [address] [place], [address] 09/28/2023 08:31:21 09/28/19 24 09/28/2023 COMPR EHENS ROSY METAB OLIC PANEL CO2 31.0 mmol/ L 21.0-3 2.0 normal Not Available [address] [place], [address] 09/28/2023 08:31:21 09/28/19 24 09/28/2023 COMPR EHENS ROSY METAB OLIC PANEL anion gap 6.0 mmol/ L 3-11 normal Not Available [address] [place], [address] 09/28/2023 08:31:21 09/28/19 24 09/28/2023 COMPR EHENS ROSY METAB OLIC PANEL AST 20 U/L 15-37 normal Not Available Tammy cole [address] [place], [address] 09/28/2023 08:31:21 09/28/19 24 09/28/2023 COMPR EHENS ROSY METAB OLIC PANEL ALT 38 U/L 16-63 normal Not Available Tammy cole [address] [place], [address] 09/28/2023 08:31:21 09/28/19 24 09/28/2023 MAGNE SIUM magnesium 1.9 mg/dL 1.8-2. 4 normal Not Available [address] [place], [address] 09/28/2023 08:31:22 09/28/19 24 09/28/2023 NT-MN OBNP nt-probnp 18 pg/mL <300 NT-pr oBNP value s <300 pg/mL have a 98% negat rosy predi ctive value for exclu ding acute conge stive heart failu re(CH F). NOTE: Supra -phys iolog ic doses of Bioti n(B7) may cause false negat rosy resul ts. Not Available [address] [place], [address] 09/28/2023 08:40:13 09/28/19 24 09/29/2023 LYME AB W RFLX TO LYME CONFI RM lyme Ab W rflx to lyme confirm Negati ve negati ve Test perfo rmed or refer red by [facility] [address] [place] [address] Not Available [address] [place], [address] 09/29/2023 15:16:04 09/28/19 24 09/29/2023 LYME AB W RFLX TO LYME CONFI RM lyme Ab W rflx to lyme confirm Negati ve negati ve Test perfo rmed or refer red by [facility] [address] [place] [address] Not Available [address] [place], [address] 10/04/2023 15:33:49 09/28/19 24 10/03/2023 TICK- BORNE DNA PANEL , PCR, B anaplasma phagocytophi lum Negati ve negati ve Not Available [address] [place], [address] 10/04/2023 15:33:49 09/28/19 24 10/03/2023 TICK- BORNE DNA PANEL , PCR, B ehrlichia chaffeensis Negati ve negati ve Not Available [address] [place], [address] 10/04/2023 15:33:49 09/28/19 24 10/03/2023 TICK- BORNE DNA PANEL , PCR, B ehrlichia ewingii/cani s Negati ve negati ve Not Available [address] [place], [address] 10/04/2023 15:33:49 09/28/19 24 10/03/2023 TICK- BORNE DNA PANEL , PCR, B ehrlichia muris eauclairensi s Negati ve negati ve ----- ----- ----- ----A DDITI ONAL INFOR MATIO N---- ----- ----- ----- This test was gato crowe and its perfo rmanc e alejandra cteri stics deter mined by [facility] c in a aquilino r consi stent with CLIA requi remen ts. This test has not been clear ed or appro adrianne by the U.S. Food and Drug Admin istra tion. Not Available [address] [place], [address] 10/04/2023 15:33:49 09/28/19 24 10/03/2023 TICK- BORNE DNA PANEL , PCR, B babesia microti Negati ve negati ve Not Available [address] [place], [address] 10/04/2023 15:33:49 09/28/19 24 10/03/2023 TICK- BORNE DNA PANEL , PCR, B babesia duncani Negati ve negati ve Not Available [address] [place], [address] 10/04/2023 15:33:49 09/28/19 24 10/03/2023 TICK- BORNE DNA PANEL , PCR, B babesia divergens/MO -1 Negati ve negati ve ----- ----- ----- ----A DDITI ONAL INFOR MATIO N---- ----- ----- ----- This test was gato crowe and its perfo rmanc e alejandra cteri stics deter mined by [facility] c in a aquilino r consi stent with CLIA requi remen ts. This test has not been clear ed or appro adrianne by the U.S. Food and Drug Admin istra tion. Not Available [address] [place], [address] 10/04/2023 15:33:49 09/28/19 24 10/03/2023 TICK- BORNE DNA PANEL , PCR, B B. miyamotoi PCR Negati ve negati ve ----- ----- ----- ----A DDITI ONAL INFOR MATALICIA N---- ----- ----- ----- This test was devel oped and its perfo rmanc e alejandra cteri stics deter mined by [facility] c in a aquilino r consi stent with CLIA cyndee wang ts. This test has not been clear ed or appro adrianne by the U.S. Food and Drug Admin istra tion. Test Perfo rmed by: [facility] [place] [facility] [address], [place] [address] Lab Direc tor: Aixa Young nn Ph.D. ; CLIA# [id number] Not Available [address] [place], [address] 10/04/2023 15:33:49 10/01/19 24 10/01/2023 URIC ACID uric acid 7.8 mg/dL 3.5-7. 2 high Not Available [facility] (Registration ) [address] [place] [address] [place], [address], 10/01/2023 15:41:30 10/01/19 24 10/01/2023 URIC ACID uric acid 7.8 mg/dL 3.5-7. 2 high Not Available [address] [place], [address] 10/01/2023 17:48:01 10/01/19 24 10/01/2023 LIPID 2 cholesterol 256 mg/dL <200 high Not Available [facility] (Registration ) [address] [place] [address] [place], [address], 10/01/2023 17:48:02 10/01/19 24 10/01/2023 LIPID 2 triglyceride 209 mg/dL <150 high Not Available [facility] (Registration ) [address] [place] [address] [place], [address], 10/01/2023 17:48:02 10/01/19 24 10/01/2023 LIPID 2 HDL cholesterol 38 mg/dL 40-60 low Not Available [facility] (Registration ) [address] [place] [address] [place], [address], 10/01/2023 17:48:02 10/01/19 24 10/01/2023 LIPID 2 calculated LDL 177 mg/dL <100 high Natio nal Rosmery stero l Educa tion Progr am (NCEP -ATPI II) class ifica tions : Rosmery stero l <200 mg/dL Monique able Rosmery stero l 200-2 39 mg/dL Borde rline High Rosmery stero l >or=2 40 mg/dL High HDL <40 mg/dL Low HDL >or=6 0 mg/dL High LDL <100 mg/dL Optim al LDL 100-1 29 mg/dL Near Optim al/Ab ove Optim al LDL 130-1 59 mg/dL Borde rline High LDL 160-1 89 mg/dL High LDL >or=1 90 mg/dL Very High *The above refer ence range is for adult s 18 years or older . Not Available [facility] (Registration ) [address] [place] [address] [place], [address], 10/01/2023 17:48:02 11/01/19 24 07/09/2020 imagi ng/di agnos tic resul t No observ ation record ed. [email or web address] Not Available 10/31 23:01:54 11/01/19 24 07/09/2020 imagi ng/di agnos tic resul t No observ ation record ed. [email or web address] Not Available 10/31 23:02:07 11/01/19 24 02/18/2021 imagi ng/di agnos tic resul t No observ ation record ed. [email or web address] Not Available 10/31 23:02:08 11/01/19 24 12/02/2019 imagi ng/di agnos tic resul t No observ ation record ed. [email or web address] Not Available 10/31 23:02:16 11/01/19 24 07/09/2020 imagi ng/di agnos tic resul t No observ ation record ed. [email or web address] Not Available 10/31 23:02:17 11/01/19 24 02/19/2021 imagi ng/di agnos tic resul t No observ ation record ed. [email or web address] Not Available 10/31 23:02:18 11/01/19 24 12/09/2022 imagi ng/di agnos tic resul t No observ ation record ed. [email or web address] Not Available 10/31 23:02:19 Result Notes None recorded. Problems Name Problem SNOMED Code Status Onset Date Resolution Date Notes Provider Name and Address Organization Details Recorded Time Vero evans 78916212 Active 2019 Problem Code: I10; Problem Code Type: ICD-10; MD Alvarez [address], [facility] [address] , [facility] 4 15:10:08 Gout 52489474 Active 2019 Problem Code: M10.9; Problem Code Type: ICD-10; MD Al[address], [facility] [address] , [facility] 4 16:05:03 Sleep disorder 39106296 Active 2019 Problem Code: G47.9; Problem Code Type: ICD-10; MD [address], [facility] [address] , [facility] 4 16:04:57 Acute non-infe ctive otitis externa 938615586 Completed 201905/10/2020 Problem Code: H60.501; Problem Code Type: ICD-10; Not Available [facility] 3 05:59:25 Pain in right foot 25546533519 9107 Completed 201605/10/2020 Problem Code: M79.671; Problem Code Type: ICD-10; Not Available [facility] 3 05:59:25 Elevated blood-pr essure reading without diagnosi s of hyperten cristina 521880943 Completed 201911/12/2022 Problem Code: R03.0; Problem Code Type: ICD-10; Not Available [facility] 3 05:59:25 Hemorrho ids 67687233 Active 2010 [facility] MD [address], [facility] [address] , [facility] 4 12:03:23 Pain of right knee region 25013614241 4105 Active [address], [place] [address] , [facility] 4 12:16:01 Ankle pain 082710554 Active [address], [place] [address] , [facility] 4 12:16:13 Plantar fasciiti s 195032186 Active [address], [facility] [address] , [facility] 4 12:16:23 Problem Notes None recorded. Procedures Surgical History None recorded. Imaging Results Imaging Date Name Status LastModified by [facility] Details LastModified Time 07/09/2020 imaging/diag nostic result completed Information not available 11/01/2023 23:01:54 07/09/2020 imaging/diag nostic result completed Information not available 11/01/2023 23:02:07 02/18/2021 imaging/diag nostic result completed Information not available 11/01/2023 23:02:08 12/02/2019 imaging/diag nostic result completed Information not available 11/01/2023 23:02:16 07/09/2020 imaging/diag nostic result completed Information not available 11/01/2023 23:02:17 02/19/2021 imaging/diag nostic result completed Information not available 11/01/2023 23:02:18 12/09/2022 imaging/diag nostic result completed Information not available 11/01/2023 23:02:19 Procedure Notes None recorded. Medical Equipment None Reported. Allergies No known drug allergies Medications Name Sig Start Date Stop Date Status Note LastModified by Organization Details LastModified Time losartan 50 mg tablet Take 1 tab by mouth daily 2019 active Not Available Not Available Not Avai lable prednisone 20 mg tablet TAKE TWO TABLETS BY MOUTH EVERY DAY FOR 7 DAYS 11/02 completed Not Available Not Available Not Available amlodipine 5 mg tablet Take 1 tablet by mouth once a day 09/30 completed Not Available Not Available Not Available allopurino l 100 mg tablet TAKE ONE TABLET BY MOUTH EVERY DAY 10/15 completed Dose change to 300mg Not Available Not Available Not Available cephalexin 500 mg capsule TAKE ONE CAPSULE BY MOUTH TWICE A DAY FOR 10 DAYS 09/30 completed Not Available Not Available Not Available losartan 25 mg tablet Take 1 tab by mouth daily 2019 active Not Available Not Available Not Avai lable indomethac in 50 mg capsule TAKE ONE CAPSULE BY MOUTH THREE TIMES A DAY active Not Available Not Available No t Available cephalexin 500 mg tablet Take 1 tab by mouth three times daily 12/06 completed Not Available Not Available Not Available allopurino l 300 mg tablet TAKE ONE TABLET BY MOUTH EVERY DAY active Not Available Not Available No t Available Cortispori n-TC 3.3 mg-3 mg-10 mg-0.5 mg/mL ear drops,susp ension 3-4 drops in right ear twice daily for 7 days 12/01 completed Not Available Not Available Not Available losartan 100 mg tablet 1 tablet by mouth once a day 09/30 completed Not Available Not Available Not Available naproxen 500 mg tablet Take 1 tab by mouth twice daily as needed for pain 01/23 completed Not Available Not Available Not Available valsartan 160 mg tablet TAKE ONE TABLET BY MOUTH EVERY DAY active Not Available Not Available No t Available Ciprodex 0.3 %-0.1 % ear drops,susp ension 3-4 drops in right ear twice daily for 7 days 2019 active Not Available Not Available Not Avai lable hydrochlor othiazide 12.5 mg tablet Take 1 tablet by mouth once a day 01/21 completed Not Available Not Available Not Available Vitals Date Recorded Body weight Oxygen saturation Oxygen saturation in Arterial blood by Pulse oximetry Heart rate Systolic blood pressure Diastolic blood pressure Provider Name and Address Organization Details Last Updated DateTime 4 79201.0 3 g 91 % 91 % 87 /min 183 mm[Hg] 115 mm[Hg] Aaron Santana [facility] 4 11:51:37 Date Recorded Body height Body mass index (BMI) Body weight Body temperature Oxygen saturation Oxygen saturation in Arterial blood by Pulse oximetry Heart rate Respiratory rate Systolic blood pressure Diastolic blood pressure Provider Name and Address Organization Details Last Updated DateTime 4 185.42 cm 27.2 kg/m2 10726.0 3 g 98 [degF] 98 % 98 % 96 /min 16 /min 168 mm[Hg] 80 mm[Hg] Lin Blackfartun [facility] 4 12:31:56 Date Recorded Body height Body mass index (BMI) Body weight Body temperature Oxygen saturation Oxygen saturation in Arterial blood by Pulse oximetry Heart rate Systolic blood pressure Diastolic blood pressure Provider Name and Address Organization Details Last Updated DateTime 4 185.42 cm 26.8 kg/m2 40772.2 5 g 97.2 [degF] 98 % 98 % 100 /min 138 mm[Hg] 86 mm[Hg] CHRISTOFER DICKERSON MA [facility] 4 14:49:18 Social History Question Answer Notes LastModified by Organizat ion Details LastModified Time Tobacco Smoking Status Never Smoker Aaron manzano [facility] 10/01/2023 11:48:40 What Was The Date Of Your Most Recent Tobacco Screening? 11/03/2023 [email or web address] Information not available 11/03/2023 Has Tobacco Cessation Counseling Been Provided? No Information not available 10/03/2023 Do You Or Have You Ever Used Any Other Forms Of Tobacco Or Nicotine? No Information not available 10/03/2023 Sex: Male Functional Status None recorded. Mental Status None recorded. Family History Nothing Reported Notes:*Problem: Mother HTN, Father HTN, DM Medical History No medical history recorded. Immunizations Vaccine Type Date Status Provider Name a nd Address Organization Details Recorded Time Tdap 10/17/2016 completed Not Available [facility] 06:13:[facility] Past Encounters Encounter ID Performer Location Encounter Start Date Encounter Closed Date Diagnosis/Indication Diagnosis SNOMED-CT Code Diagnosis ICD10 Code [id number] REENA MOMIN MD [address] [address] 10/01/2023 11:40:12 10/01/2023 12:36:05 Essential hypertension 84633051 I10 Ankle pain 158359282 M25 .579 Pain of ri ght knee region 2856774401 66210 M25.384 [id number] Scotty Dotson MD [address],[facility] [address] [place] [address] 10/03/2023 11:50:57 10/03/2023 13:05:42 Gout 15280836 M10.9 [id number] [facility] [address] [address] 11/03/2023 14:36:33 11/03/2023 15:20:36 Essential hypertension 52894643 I10 Gout 92528520 M10.9 Health Concerns Section Related Observation LastModified by Organization Detai ls LastModified Time None Recorded Concern Status LastModified by Organization Details LastModified Time None Recorded Advance Directives Directive None Recorded Payers Encounter Date Sequence Insurance Name Policy Number Policy Zendejas Covered Member ID Zendejas Member ID Guarantor Name 10/01/2023 1 [place] [employer] [place] Gilson Royal [id number] Gilson Royal 10/03/2023 1 [place] [place] Gislon Royal [id number] Gilson Royal Notes Date Note Type Note Provider Name and Address Organization Details Recorded Time 10/01/2023 text/html HPI Notes: Patient has complaints of arthralgias, primarily ankles feet and knees. Has been told he has gout in the past. Went to emergency room recently, he states not much was done and told to follow-up with us. He has had no recent illnesses including fevers or chills. No recent trauma. Pain is primarily right knee ankle, also his left ankle. REENA MOMIN MD [address], [place], [place], [id number], [facility]. 10/05/2023 22:55:32
--- OUTSIDE RECORDS SUMMARY | 2023-11-03 20:32 | XMS_ITS | Clinical Summary ---
Author Organization [facility] Address [address] [place] [address] Care Team Providers Care Stove Polisher Name Role Phone Unavailable Primary Care Provider Unavailabl e Encounters Date Type Department Care Team Description 09/28/2023 Lab Requisition [facility] Pathology & Laboratory Medicine - [facility] [address] [place] [address] Outr Resulting Lab, Provider from Last 3 [...] Lyme Ab Negative Negative 09/29/2023 10:24 EDT [facility] Blood VENOUS BLOOD / Unknown 09/28/2023 7:35 EDT 09/28/2023 17:46 EDT Provider Outr Resulting Lab IMMUNOLOGY A ND SEROLOGY ORDERABLES [facility] [address] [place], [place] [address] from Last 3 Months
--- OUTSIDE RECORDS SUMMARY | 2023-11-03 20:32 | XMS_ITS | Encounter Summary ---
Author Organization [facility] Address [address] [place] [address] Care Team Providers Care Career Development Counselor Name Role Phone Unavailable Primary Care Provider Unavailabl e Encounter Details Date Type Department Care Team (Late st Contact Info) Description 02/19/2021 Lab Requisition [facility] Pathology & Laboratory Medicine - [facility] [address] [place] [address] Outr Resulting Lab, Provider Social History Tobacco [...] Priority Date/Time Associated Diagnosis Comments ZZCOVID-19 TEST [facility] PCR Today 02/18/2021 15:20 EST COVID-19 TESTING Routine 02/18/2021 15:2 0 EST documented in this encounter Results * COVID-19 TEST [facility] PCR (02/18/2021 15:20 EST) Swab 02/18/2021 15:2 0 EST 02/19/2021 23:51 EST Provider Outr Resulting Lab MICROBIOLOGY - GENERAL ORDERABLES [facility] [address] [place] [address] * COVID-19 TESTING (02/18/2021 15:20 EST) COVID-19 rt-PCR Result Negative Negative 02/20/2021 14:53 EST [facility] Comment: This test has not [...] performed using the xochilt SARS-CoV-2 assay ([employer] on the Xochilt 6800 System Performing Lab Xochilt 6800 [facility] 02/20/2021 14:53 EST [facility] Swab 02/18/2021 15:2 0 EST 02/19/2021 23:51 EST Provider Outr Resulting Lab MICROBIOLOGY - GENERAL ORDERABLES [facility] [address] [place] [address] documented in this encounter Visit Diagnoses Not on filedocumented in this encounter
--- OUTSIDE RECORDS SUMMARY | 2023-11-03 20:32 | XMS_ITS | Referral Summary ---
Author Organization [facility] Address [address] [place] [address] Care Team Providers Care Eclectic Doctor Name Role Phone Unavailable Primary Care Provider Unavailabl e Encounters Date Type Department Care Team Description 09/28/2023 Lab Requisition [facility] Pathology & Laboratory Medicine - [facility] [address] [place] [address] Outr Resulting Lab, Provider from Last 3 [...] Lyme Ab Negative Negative 09/29/2023 10:24 EDT [facility] Blood VENOUS BLOOD / Unknown 09/28/2023 7:35 EDT 09/28/2023 17:46 EDT Provider Outr Resulting Lab IMMUNOLOGY A ND SEROLOGY ORDERABLES [facility] [address] [place] [address] from Last 3 Months
--- OUTSIDE RECORDS SUMMARY | 2023-11-03 20:32 | XMS_ITS | Continuity of Care Document ---
Author Organization [place] - [facility] Address [address] [place] [address] Assessment No assessment recorded. Plan of Treatment Reminders Order Date Submit Date Provider Last Modified By Organization Details Last Modified Time Details Appointments Office Visit 2023 02:40P M Not available Not available Not available Annual Wellness Exam 2024 02:10P M Not available Not available Not available Lab uric acid, serum or plasma 2023 024 [facility] (Registration ), [address] [place] [address] [place], [address], 10/02/2023 09:13:26 lipids, total, serum 2023 024 [facility] (Registration ), [address] [place] [address] [place], [address], 10/02/2023 09:13:35 Referral None recorded. Procedures None recorded. Surgeries None recorded. Imaging XR, knee, 3 view [address] [facility], [place], [address], 10/14/2023 11:36:49 XR, ankle, 3 or more view [address] [facility], [address], [place], [address], 10/14/2023 11:36:35 Medication Orders valsartan 160 mg tablet 2023 024 [facility], [address] [place] [address], [address], 10/01/2023 12:18:56 Patient TargetsNo targets recorded. Patient InstructionsNo instructions recorded. Reason for Referral None Reported. Results Created Date Observation Date Name Description Value Unit Range Abnormal Flag Note LastModifiedBy Organization Detail LastModifiedTime 11/01/19 24 07/09/2020 imagi ng/di agnos tic resul t No observ ation record ed. [email or web address] Not Available 10/31 23:01:54 11/01/19 24 07/09/2020 imagi ng/di agnos tic resul t No observ ation record ed. [email or web address] Not Available 10/31 23:02:07 11/01/1902/18/2021 imagi ng/di agnos tic resul t No observ ation record ed. 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 09/17/202 4 15:10:08 Gout 62242612 Active 2019 Problem Code: M10.9; Problem Code Type: ICD-10; MD [address], [facility] [address] , [facility] 4 16:05:03 Sleep disorder 65657879 Active 2019 Problem Code: G47.9; Problem Code Type: ICD-10; MD [address], [facility] [address] , [facility] 4 16:04:57 Acute non-infe ctive otitis externa 463109367 Completed 201905/10/2020 Problem Code: H60.501; Problem Code Type: ICD-10; Not Available [facility] 3 05:59:25 Pain in right foot 64354959862 9107 Completed 201605/10/2020 Problem Code: M79.671; Problem Code Type: ICD-10; Not Available [facility] 3 05:59:25 Elevated blood-pr essure reading without diagnosi s of hyperten cristina 828064465 Completed 201911/12/2022 Problem Code: R03.0; Problem Code Type: ICD-10; Not Available [facility] 3 05:59:25 Hemorrho ids 31762962 Active 2010 [facility] MD [address], [place], [address] , [facility] 4 12:03:23 Pain of right knee region 53904280018 4105 Active [address], [facility] [address] , [facility] 4 12:16:01 Ankle pain 167244343 Active [address], [place], [address] , [facility] 4 12:16:13 Plantar fasciiti s 515279628 Active 2023 REENA MOMIN MD [address], [place], [address] , [facility]. 12:16:23 Problem Notes None recorded. Medical Equipment None Reported. [...] Address Organization Details Last Updated DateTime 4 69047.0 3 g 91 % 91 % 87 /min 183 mm[Hg] 115 mm[Hg] Aaron Santana [facility] 11:51:37 Date Recorded Body height Body mass index (BMI) Body weight Body temperature Oxygen saturation Oxygen saturation in Arterial blood by Pulse oximetry Heart rate Respiratory rate Systolic blood pressure Diastolic blood pressure Provider Name and Address Organization Details Last Updated DateTime 4 185.42 cm 27.2 kg/m2 05930.0 3 g 98 [degF] 98 % 98 % 96 /min 16 /min 168 mm[Hg] 80 mm[Hg] Lin Blacketer [facility] 12:31:56 Social History Question Answer Notes LastModified by Organizat ion Details LastModified Time Tobacco Smoking Status Never Smoker Aaron Santana [facility] 10/01/2023 11:48:40 What Was The Date Of [...] Recorded Time Tdap 10/17/2016 completed Not Available [facility] 06:13:49 Past Encounters Encounter ID Performer Location Encounter Start Date Encounter Closed Date Diagnosis/Indication Diagnosis SNOMED-CT Code Diagnosis ICD10 Code [id number] REENA MOMIN MD [facility] [address] [place] [address] 10/01/2023 11:40:12 10/01/2023 12:36:05 Essential hypertension 70484661 I10 Ankle pain 477902892 M25 .579 Pain of ri ght knee region 1545153104 88568 M25.561 Health Concerns Section Related Observation LastModified by Organization Detai ls LastModified Time None Recorded Concern Status LastModified by Organization Details LastModified Time None Recorded Payers Encounter Date Sequence Insurance Name Policy Number Policy Zendejas Covered Member ID Zendejas Member ID Guarantor Name 10/01/2023 1 [place] [employer] [place] Gilson Royal [id number] Gilson Royal Notes Date Note Type Note [...] right knee ankle, also his left ankle. MD [address], [place], [address], [facility]. 10/05/2023 22:55:32
--- OUTSIDE RECORDS SUMMARY | 2023-11-03 20:32 | XMS_ITS | Encounter Summary ---
Author Organization [facility] Address [address] [place] [address] Care Team Providers Care Ibm Mainframe Systems Programmer Name Role Phone Unavailable Primary Care Provider Unavailabl e Encounter Details Date Type Department Care Team (Late st Contact Info) Description 09/28/2023 Lab Requisition [facility] Pathology & Laboratory Medicine - [facility] [address] [place] [address] Outr Resulting Lab, Provider Social History Tobacco [...] Lyme Ab Negative Negative 09/29/2023 10:24 EDT [facility] Blood VENOUS BLOOD / Unknown 09/28/2023 7:35 EDT 09/28/2023 17:46 EDT Provider Outr Resulting Lab IMMUNOLOGY A ND SEROLOGY ORDERABLES [facility] [address] [place], [place] [address] documented in this encounter Visit Diagnoses Not on filedocumented in this encounter
--- OUTSIDE RECORDS SUMMARY | 2023-11-03 20:32 | XMS_ITS | Continuity of Care Document ---
Author Organization [place] [facility] [place] [facility], [facility] Address [address] [facility] [place] [address] Assessment No assessment recorded. Plan of Treatment Reminders Order Date Submit Date Provider Last Modified By Organization Details Last Modified Time Details Appointments Office Visit 2023 02:40P M Not available Not available Not available Annual Wellness Exam 2024 02:10P M Not available Not available Not available Lab None recorded. Referral None recorded. Procedures None recorded. Surgeries None recorded. Imaging None recorded. Medication Orders prednison e 20 mg tablet 2023 024 [email or web address], [address] [facility], [place], [address], 11/03/2023 14:59:38 Patient TargetsNo targets recorded. Patient Instructions Encounter Date Encounter Id Patient Instructions Last Modified By Organization Details Last Modified Time 10/03/2023 [id number] pt has had similar episodes every year [...] Abnormal Flag Note LastModifiedBy Organization Detail LastModifiedTime 11/01/1907/09/2020 imagi ng/di agnos tic resul t No observ ation record ed. [email or web address] Not Available 10/31 23:01:54 11/01/1909 0707/09/2020 imagi ng/di agnos tic resul t No [...] record ed. [email or web address] Not Available 10/31 23:02:17 11/01/1902/19/2021 imagi ng/di agnos tic resul t No observ ation record ed. [email or web address] Not Available 10/31 23:02:18 11/01/19 24 12/09/2022 imagi ng/di agnos tic resul t No observ ation record ed. [email or web address] Not Available 10/31 23:02:19 Result Notes None recorded. Problems Name Problem SNOMED Code Status Onset Date Resolution Date Notes Provider Name and Address Organization Details Recorded Time [facility] 57176022 Active 2019 Problem Code: I10; Problem Code Type: ICD-10; MD [address], [facility] [address] , [facility] 4 15:10:08 [facility] 68287689 Active 2019 Problem Code: M10.9; Problem Code Type: ICD-10; MD [place], [address] , [facility] 4 16:05:03 Sleep disorder 35597451 Active 2019 Problem Code: G47.9; Problem Code Type: ICD-10; MD [address], [facility] [address] , [facility] 4 16:04:57 Acute non-infe ctive otitis externa 036840714 Completed 201905/10/2020 Problem Code: H60.501; Problem Code Type: ICD-10; Not Available [facility] 3 05:59:25 Pain in right foot 25241030085 9107 Completed 201605/10/2020 Problem Code: M79.671; Problem Code Type: ICD-10; Not Available [facility] 3 05:59:25 Elevated blood-pr essure reading without diagnosi s of hyperten cristina 254098623 Completed 201911/12/2022 Problem Code: R03.0; Problem Code Type: ICD-10; Not Available [facility] 3 05:59:25 Hemorrho ids 35010065 Active 2010 [facility] MD [address], [place] [address] , [facility] 4 12:03:23 Pain of right knee region 49232242880 4105 Active [address], [place] [address] , [facility] 4 12:16:01 Ankle pain 338263381 Active [address], [facility] [address] , [facility] 4 12:16:13 Plantar fasciiti s 881860482 Active [address], [address] 4 12:16:23 Problem Notes None recorded. Medical Equipment [...] Available Not Available Vitals Date Recorded Body height Body mass index (BMI) Body weight Body temperature Oxygen saturation Oxygen saturation in Arterial blood by Pulse oximetry Heart rate Respiratory rate Systolic blood pressure Diastolic blood pressure Provider Name and Address Organization Details Last Updated DateTime 4 185.42 cm 27.2 kg/m2 87240.0 3 g 98 [degF] 98 % 98 % 96 /min 16 /min 168 mm[Hg] 80 mm[Hg] Lin Clay [facility] 12:31:56 Social History Question Answer Notes LastModified by Organizat ion Details LastModified Time Tobacco Smoking Status Never Smoker Aaron Waretammy manzano [facility] 10/01/2023 11:48:40 What Was The Date Of [...] Vaccine Type Date Status Provider Name a wi Address Organization Details Recorded Time Tdap 10/17/2016 completed Not Available [employer] 06:13:49 Past Encounters Encounter ID Performer Location Encounter Start Date Encounter Closed Date Diagnosis/Indication Diagnosis SNOMED-CT Code Diagnosis ICD10 Code [id number] REENA MOMIN MD [address] [address] 10/01/2023 11:40:12 10/01/2023 12:36:05 Essential hypertension 05321376 I10 Ankle pain 411892160 M25 .579 Pain of ri ght knee region 2291252615 74706 M25.740 [id number] Scotty Dotson MD [address],[facility] [address] [place] [address] 10/03/2023 11:50:57 10/03/2023 13:05:42 Gout 86881436 M10.9 Health Concerns Section Related Observation LastModified by Organization Detai ls LastModified Time None Recorded Concern Status LastModified by Organization Details LastModified Time None Recorded Payers Encounter Date Sequence Insurance Name Policy Number Policy Zendejas Covered Member ID Zendejas Member ID Guarantor Name 10/03/2023 1 [place] [facility] Gilson Royal [id number] Gilson Royal
[2023-11-03 21:53] LABS: Anion Gap 8.2 mmol/L (3-11); BUN 22 mg/dL (7-18); CO2 29.8 mmol/L (21.0-32.0); CREATININE 1.5 mg/dL (0.70-1.30); Calcium 9.6 mg/dL (8.5-10.1); Chloride 103 mmol/L (98-107); Estimated GFR 59.24 (mL/min/1.73m2); Glucose 103 mg/dL (74-106); Potassium 3.6 mmol/L (3.5-5.1); Sodium 141 mmol/L (136-145); Uric Acid 5.8 mg/dL (3.5-7.2)
== END 2023-11-03 20:31 | disposition home or self-care (01) ==
LOC: NCHCN 20:30
PROVIDERS: PCP Family Medicine; Visit Provider Family Medicine
DX: I10 Essential (primary) hypertension (principal); M10.49 Other secondary gout, multiple sites
CPT/HCPCS: 80048; 84550

== ENCOUNTER 2023-12-09 12:37 | Outpatient (CLI) | payer BC, SELFPAY ==
--- NOTE | 2023-12-09 12:00 | DI.RAD_ITS ---
Exam(s) XR FOOT LT COMPLETE EXAM: XR FOOT LT COMPLETE CLINICAL HISTORY: M25.572 Pain in left ankle,/jnts left foot, gout. TECHNIQUE: 2D digital imaging was performed of the left foot. Three images were obtained. AP, obli que and lateral views were obtained. COMPARISON: No priors for comparison. FINDINGS: BONES: No acute fracture is present. No bony destructive lesion is seen. There is an enthesophyte at the posterior calcaneus. JOINTS: No dislocation present. The joint spaces are well maintained. SOFT TISSUE: Normal. IMPRESSION: No acute abnormality. DATA REPOSITORY: RADIATION DOSE DELIVERED:
--- NOTE | 2023-12-09 12:00 | DI.RAD_ITS ---
Exam(s) XR FOOT RT COMPLETE EXAM: XR FOOT RT COMPLETE CLINICAL HISTORY: M25.571 Pain in RT ankle/joints RT foot, mid foot pain. TECHNIQUE: 2D digital imaging was performed of the right foot. Three images were obtained. AP, obl ique and lateral views were obtained. COMPARISON: CR RIGHT FOOT COMPLETE from 10/15/2016 FINDINGS: BONES: No acute fracture is present. No bony destructive lesion is seen. There is a small enthesophyt e at the posterior calcaneus. JOINTS: No dislocation present. There are degenerative changes seen in the foot particularly at the a rticulation of the navicular and the cuneiforms. SOFT TISSUE: Normal. IMPRESSION: Mild degenerative changes of the right foot. DATA REPOSITORY: RADIATION DOSE DELIVERED:
== END 2023-12-09 12:57 ==
LOC: DI 12:38
PROVIDERS: PCP Family Medicine; Visit Provider Podiatrist
DX: M19.071 Primary osteoarthritis, right ankle and foot (principal); M25.572 Pain in left ankle and joints of left foot
CPT/HCPCS: 73630

== ENCOUNTER 2024-12-05 16:18 | Outpatient (REF) | payer BC, SELFPAY ==
[2024-12-05 21:21] LABS: Anion Gap 9.5 mmol/L (3-11); BUN 26 mg/dL (7-18); CO2 27.5 mmol/L (21.0-32.0); Calcium 9.1 mg/dL (8.5-10.1); Chloride 101 mmol/L (98-107); Estimated GFR 69.47 (mL/min/1.73m2); Glucose 123 mg/dL (74-106); Potassium 3.7 mmol/L (3.5-5.1); Sodium 138 mmol/L (136-145)
== END 2024-12-05 16:19 | disposition home or self-care (01) ==
LOC: NCHCN 16:18
PROVIDERS: PCP Family Medicine; Visit Provider Family Medicine
DX: I10 Essential (primary) hypertension (principal)
CPT/HCPCS: 80048